=== PATIENT | female | born 1960 | race Caucasian/White ===

== ENCOUNTER 2020-08-29 08:53 | Outpatient (REF) | payer OTHER, SELFPAY ==
--- NOTE | 2020-08-29 | MM_ITS ---
EXAMINATION: MM SCREENING DIGITAL BREAST TOMOSYNTHESIS, BILATERAL CLINICAL INFORMATION: Screening. Asymptomatic. Family history breast cancer mother, age 75. 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 Personal history right excisional biopsy 09/25/2019 for focal ADH. The lifetime risk of breast cancer based on the Tyrer-Cuzick Model is 9%. COMPARISON: Mammography: 09/25/2019, 08/25/2019, 08/21/2019, 08/17/2019, 08/15/2018, 02/06/2018. Bilateral MRI. 10/30/2018. TECHNIQUE: Digital breast tomosynthesis is performed in both the craniocaudal and mediolateral oblique views along with computer-aided detection (CAD). Synthesized 2D images are generated from the tomosynthesis. Additional exaggerated right CC view is provided. FINDINGS: There are scattered areas of fibroglandular density (ACR BI-RADS breast composition Category b). The left breast has some minor scarring consistent with the lumpectomy. There is no interval mass or architectural abnormality or abnormal calcifications. The axilla is unremarkable. The right breast has focal asymmetric density upper outer quadrant 8 cm from nipple. This represents change from prior studies. Patient will be recalled for additional imaging. The remainder of the right breast is unremarkable. There are scattered punctate benign bilateral breast calcifications. IMPRESSION: 1. Right: Focal asymmetric density upper outer quadrant, change from prior exams. 2. Left: No mammographic evidence of malignancy. ASSESSMENT: BI-RADS 0: Incomplete - Need Additional Imaging Evaluation RECOMMENDATION: 1. Additional views of the right breast (spot outer CC, spot ML). 2. Targeted ultrasound right breast. 3. Radiology department staff will contact the patient for additional imaging. This patient's information was entered into a reminder system with a target due date for their next mammogram.
== END 2020-08-29 08:54 | disposition home or self-care (01) ==
LOC: HO.MAMMO 08:53
PROVIDERS: PCP Internal Medicine; Visit Provider Surgery
DX: Z12.31 Encounter for screening mammogram for malignant neoplasm of breast (principal)
CPT/HCPCS: 77063; 77067

== ENCOUNTER 2020-09-05 09:06 | Outpatient (REF) | payer OTHER, SELFPAY ==
--- NOTE | 2020-09-05 09:10 | MM_ITS ---
EXAMINATION: MM DIAGNOSTIC DIGITAL BREAST TOMOSYNTHESIS, RIGHT US RIGHT BREAST ULTRASOUND CLINICAL INFORMATION: New right breast density upper outer aspect. COMPARISON: Mammography: 08/29/2020 and studies dating back to 03/26/2016 and 01/05/2013. TECHNIQUE: Digital breast tomosynthesis is performed. 2D images are generated from the tomosynthesis. The following views are obtained: Spot compression views right breast in craniocaudal, mediolateral oblique, and 90-degree mediolateral views. Targeted right breast ultrasound. FINDINGS: There are scattered areas of fibroglandular density (ACR BI-RADS breast composition Category b). There is persistence of an irregularly marginated 1.7 x 1.3 cm density, approximately 6 cm from the nipple. Targeted right breast ultrasound demonstrated an approximately 1.3 x 1.0 cm irregularly marginated hypoechoic lesion with some mild distal sound shadowing lesion is wider than it is tall. No internal vascularity was detected. Results are discussed with the patient at time of visit. MM/MM tomosynthesis added views R IMPRESSION: Suspicious right breast mass upper outer aspect for which ultrasound-guided biopsy is recommended. The above recommendation was called to the referring provider's office by the patient navigator. ASSESSMENT: BI-RADS 4: Suspicious. RECOMMENDATION: Right breast ultrasound-guided core biopsy. This patient's information was entered into a reminder system with a target due date for their next mammogram.
== END 2020-09-05 09:07 | disposition home or self-care (01) ==
LOC: HO.MAMMO 09:06
PROVIDERS: Visit Provider Surgery
DX: R92.2 Inconclusive mammogram (principal)
CPT/HCPCS: 76642; 77065

== ENCOUNTER 2020-09-08 09:38 | Outpatient (REF) | payer OTHER, SELFPAY ==
--- NOTE | 2020-09-08 | MM_ITS ---
EXAMINATION: PROCEDURE: US GUIDED BREAST BIOPSY, RIGHT CLINICAL INFORMATION: Focal mass 10:00 position right breast adjacent to the muscle wall. COMPARISON: September 05, 2020 and August 29, 2020 PROCEDURAL DETAILS: The details of the procedure, as well as the risks, benefits, and alternatives to the procedure were explained to the patient in detail and all of her questions were answered, after which written informed consent was obtained. Site and side were confirmed. Prior to the procedure, sonography revealed an approximately 1.5 x 1.0 cm irregularly marginated hypoechoic lesion with some mild distal sound shadowing o'clock position 7 cm from the nipple. A time-out was performed, the lesion intended for biopsy was targeted, and the skin of the right breast was then prepped and draped in the usual sterile fashion. Using sonographic guidance, sterile technique, and 1% lidocaine without epinephrine for local anesthesia, multiple automated core biopsies were obtained through the targeted area with a 14G spring loaded Achieve core biopsy device. There was real-time confirmation of appropriate needle passage. Sampling was documented. At the completion of tissue sampling, a single butterfly-shaped metallic clip was deposited at the biopsy site. There was no evidence of immediate complication. SPECIMEN: An appropriate sample was obtained. DIGITAL POST-PROCEDURE MAMMOGRAPHY: Breast density: The tissue is heterogeneously dense. Obscure small masses. BI-RADS version 5 category C. There are no new mammographic findings demonstrated. The postprocedure 2-view direct digital mammogram reveals satisfactory positioning of the biopsy clip. The patient tolerated the procedure well and, after assuring adequate hemostasis, was discharged in good condition after reviewing postbiopsy breast care instructions. Final pathology results are pending. MM/MM diagnostic mammo unilat RT IMPRESSION: 1. No immediate complication from ultrasound-guided percutaneous biopsy right breast. 2. Ultrasound was used to localize and guide marker clip placement. 3. The 2-view direct digital postprocedure mammogram reveals satisfactory positioning of the biopsy clip. 4. Final pathology results are pending. A separate report with final recommendations will be issued once these results are made available.
== END 2020-09-08 09:39 | disposition home or self-care (01) ==
LOC: HO.MAMMO 09:38
PROVIDERS: Visit Provider Surgery
DX: C50.411 Malignant neoplasm of upper-outer quadrant of right female breast (principal)
CPT/HCPCS: 19083; 77065; 88305; 88342; 88360

== ENCOUNTER → 2020-09-13 14:18 | Outpatient (BNVA) | payer OTHER, SELFPAY | PROVIDERS: PCP Internal Medicine Geriatric Medicine; Referring Provider Internal Medicine Geriatric Medicine; Visit Provider Surgery | DX: C50.911 Malignant neoplasm of unspecified site of right female breast (principal); I10 Essential (primary) hypertension; K21.9 Gastro-esophageal reflux disease without esophagitis; Z88.6 Allergy status to analgesic agent; Z88.5 Allergy status to narcotic agent | CPT/HCPCS: 99212 ==

== ENCOUNTER 2023-08-27 09:10 | Outpatient (REF) | payer OTHER, SELFPAY ==
[2023-08-27 09:43] LABS: MANUAL DIFF FLAG NO
[2023-08-27 09:57] LABS: Basophils Percent Auto 0.3 % (0-2); Eosinophils Absolute Auto 0.1 X10*3/uL (0.0-0.4); Eosinophils Percent Auto 0.9 % (0-4); Hematocrit 36.9 % (37.0-47.0); Hemoglobin 12.2 g/dl (12.0-16.0); Imm Gran Abs Auto 0.03 X10*3/uL (0.00-0.03); Imm Gran Pct Auto 0.3 % (0.0-0.4); Lymphocytes Absolute Auto 1.1 X10*3/uL (1.2-4.9); Lymphocytes Percent Auto 12.3 % (20-40); Mean Corpuscular HGB Conc 33.1 g/dl (31.0-35.0); Mean Corpuscular Hemoglobin 28.3 pg (27.0-33.0); Mean Corpuscular Volume 85.6 fL (80.0-98.0); Mean Platelet Volume 9.8 fL (9.4-12.3); Monocytes Absolute Auto 0.5 X10*3/uL (0.1-1.2); Monocytes Percent Auto 5.1 % (2-11); Neutrophils Absolute Auto 7.2 x10*3/uL (2.0-8.3); Neutrophils Percent Auto 81.1 % (45-73); Platelet Count 340 X10*3/uL (160-400); Red Blood Count 4.31 X10*6/uL (4.20-5.50); Red Cell Distribution Width 11.9 % (11.0-16.0); White Blood Count 8.8 X10*3/uL (4.8-10.8)
[2023-08-27 10:53] LABS: Alanine Aminotransferase 27 U/L (0-31); Albumin Level 4.5 g/dL (3.5-5.0); Alkaline Phosphatase 123 U/L (39-117); Anion Gap 16 (12-20); Aspartate Amino Transferase 29 U/L (5-31); Bilirubin Total 0.4 mg/dL (0.0-1.0); Blood Urea Nitrogen 12 mg/dL (9-16); Calcium 10.1 mg/dL (8.4-10.2); Carbon Dioxide 24 mmol/L (22-29); Chloride 103 mmol/L (96-108); Cholesterol 230 mg/dL (<200); Estimated Glomerular Filt Rate > 60; Glucose Random 106 mg/dL (60-115); HDL Cholesterol 44 mg/dL (>40); LDL Cholesterol Calculated 144 mg/dL (<100); Potassium 3.9 mmol/L (3.3-5.1); Sodium 139 mmol/L (135-145); Total Protein 7.7 g/dL (6.5-8.0); Triglycerides 212 mg/dL (<150)
[2023-08-27 11:00] LABS: Vitamin B12 515 pg/mL (200-900)
[2023-08-27 11:03] LABS: TSH reflex Free T4 3.14 uIU/mL (0.32-4.0)
== END 2023-08-27 09:11 | disposition home or self-care (01) ==
LOC: HO.LAB 09:10
PROVIDERS: PCP Internal Medicine Geriatric Medicine; Visit Provider Internal Medicine Geriatric Medicine
DX: R41.3 Other amnesia (principal); E78.00 Pure hypercholesterolemia, unspecified
CPT/HCPCS: 36415; 80053; 80061; 82607; 84443; 85025

== ENCOUNTER 2023-10-11 14:16 | Outpatient (REF) | payer OTHER, SELFPAY | END 2023-10-11 14:17 | disposition home or self-care (01) | LOC: HO.HHCLNP 14:16 | PROVIDERS: Visit Provider Nurse Practitioner Primary Care | DX: R31.0 Gross hematuria (principal) | CPT/HCPCS: 87086 ==

== ENCOUNTER 2023-11-21 11:21 | Outpatient (REF) | payer OTHER, SELFPAY ==
[2023-11-21 13:07] LABS: Appearance Urine Turbid; Color Urine Yellow; Glucose Urine UA Negative (Negative); Leukocyte Esterase Urine Small (1+) (Negative); Nitrite Urine Negative (Negative); PH 5.5 (5.0-9.0); Specific Gravity - Urine 1.025 (1.005-1.025); UMIC TRIGGER UACC YES; Urine Blood Negative (Negative); Urine Ketones Trace mg/dL (Negative); Urine Protein Negative (Neg-Trace)
[2023-11-21 13:15] LABS: Bacteria Urine None Seen (None Seen); Hyaline Casts Urine 0-2 /LPF (0-2); Squamous Epithelial Cell Urine 0-2 /HPF (0-2); UACC Culture Trigger YES
[2023-11-21 14:16] LABS: RBC Urine 0-2 /HPF (0-2)
== END 2023-11-21 11:22 | disposition home or self-care (01) ==
LOC: HO.HHCL 11:21
PROVIDERS: Visit Provider Internal Medicine Geriatric Medicine
DX: R31.0 Gross hematuria (principal)
CPT/HCPCS: 81001; 87086

== ENCOUNTER 2024-03-11 09:07 | Outpatient (REF) | payer OTHER, SELFPAY ==
[2024-03-11 12:06] LABS: Creatinine Urine 145.84 mg/dL; Microalbum/Creatinine Ratio Ur 33.5 ug/mg cr (<30)
[2024-03-11 12:09] LABS: Anion Gap 14 (12-20); Blood Urea Nitrogen 12 mg/dL (9-16); Calcium 9.4 mg/dL (8.4-10.2); Carbon Dioxide 24 mmol/L (22-29); Chloride 105 mmol/L (96-108); Estimated Glomerular Filt Rate > 60; Glucose Random 113 mg/dL (60-115); Sodium 139 mmol/L (135-145)
== END 2024-03-11 09:08 | disposition home or self-care (01) ==
LOC: HO.HHCL 09:07
PROVIDERS: Visit Provider Internal Medicine Geriatric Medicine
DX: E11.9 Type 2 diabetes mellitus without complications (principal); I10 Essential (primary) hypertension
CPT/HCPCS: 36415; 80048; 82043; 82570

== ENCOUNTER 2024-12-24 14:27 | Outpatient (REF) | payer OTHER, SELFPAY ==
--- OUTSIDE RECORDS SUMMARY | 2024-12-24 14:31 | XMS_ITS | Encounter Summary ---
Author Organization [employer] Address [address] [place] [address] Care Team Providers Care Sheet Metal Assembler And Riveter Name Role Phone Name, Abimael ARANDA Primary Care Provider [phone] Reason for Visit * Reason Comments Med Refill Encounter Details Date Type Department Care Team (Late st Contact Info) Description 11/29/2024 Refill [facility] MED & PEDS [address] [place], [place] [phone] Name, MD Abimael [address] [place] [address] Social History Tobacco Use Types Packs/Day Years Used Date Smoking Tobacco: Never Passive Smoke Exposure: Never Smokeless Tobacco: Never Alcohol Use Standard Drinks/Week Comments Never 0 (1 standard drink = 0.6 oz pur e alcohol) Depression Answer Date Recorded Patient Health Questionnaire-9 Score 0 03/05/2024 Patient Health Questionnaire-9 Score 0 03/05/2024 Last PHQ-9: Questionnaire Data Not on file 0 03/05/2024 Housing Stability Answer Date Recorded What is your housing situation today? I have fabián arteaga 03/05/[address] you li ve. Do you have problems with any of the following? None of the above 03/05/2024 Food Insecurity Answer Date Recorded Within the past 12 months, y ou worried that your food would run out before you got money to buy more: Never True 03/05/2024 Within the past 12 months,th e food you bought just didn't last and you didn't have enough money to get more: Never True Transportation Answer Date Recorded In the past 12 months, has l ack of transportation kept you from medical appts, meetings, work or from getting things needed for daily living? No 03/05/2024 Utilities Answer Date Recorded In the past 12 months, has t he electric, gas, oil or water company threatened to shut off services in your home? No 03/05/2024 Depression Answer Date Recorded Patient Health Questionnaire-2 Score 0 03/05/2024 Comments No Sex and Gender Information Value Date Recorded Sex Assigned at Female 09/10/2022 10:14 AM EDT Legal Sex Female 10:14 AM EDT Gender Identity Female 09/10/2022 10:14 AM EDT Sexual Orientation Straight 09/10/2022 10 :14 AM EDT documented as of this encounter Plan of Treatment Upcoming Encounters Date Type Department Care Team (Late st Contact Info) Description 01/01/2025 11:30 AM EST Clinical Support [facility] MEDICINE [address] [place] [address] documented as of this encounter Visit Diagnoses Not on filedocumented in this encounter Additional Health Concerns Assessment Noted Time PHQ-9 Depression Total Score: 0 03/05/20 24 9:36 AM EDT documented as of this encounter Care Teams Sheet Metal Assembler And Riveter Relationship Specialty Start Date End Date Name, MD Abimael [address] [place] [address] PCP - General Family Medicine 09/24/19 documented as of this encounter
--- OUTSIDE RECORDS SUMMARY | 2024-12-24 14:31 | XMS_ITS | Encounter Summary ---
Author Organization [employer] Address [address] [place] [address] Care Team Providers Care Mattress Filling Machine Tender Name Role Phone Name, Abimael ARANDA Primary Care Provider [phone] Encounter Details Date Type Department Care Team (Latest Contact Info) Description 12/24/2024 Travel Social History Tobacco Use Types Packs/Day Years [...] Description 01/01/2025 11:30 AM EST Clinical Support [facility] MED[facility]INE [address] [place] [address] documented as of this encounter Visit Diagnoses Not on filedocumented in this encounter Additional Health Concerns Assessment Noted Time PHQ-9 Depression Total Score: 0 03/05/20 24 9:36 AM EDT documented as of this encounter Care Teams Mattress Filling Machine Tender Relationship Specialty Start Date End Date Name, MD Abimael [address] [place] [address] PCP - General Family Medicine 09/24/19 documented as of this encounter
--- OUTSIDE RECORDS SUMMARY | 2024-12-24 14:31 | XMS_ITS | Encounter Summary ---
Author Organization [employer] [facility] Address [address] [place] [address] Care Team Providers Care Crutch Maker Name Role Phone Name, Abimael ARANDA Primary Care Provider [phone] Reason for Visit * Reason Comments Med Refill Encounter Details Date Type Department Care Team (Late st Contact Info) Description 09/30/2023 Refill [facility] MEDICINE [address] [place], [place] [phone] Name, MD Abimael [address] [place], [place] [phone] Dyslipidemia Social History Tobacco Use Types Packs/Day Years Used Date Smoking Tobacco: Never Smokeless Tobacco: Never Alcohol Use Standard Drinks/Week Comments Never 0 (1 standard drink = 0.6 oz pur e alcohol) PHQ-2 Answer Date Recorded Patient Health Questionnaire-2 Score 0 12/06/2022 Housing Stability Answer Date Recorded What is your housing situation today? I have fabián arteaga 08/26/[address] you li ve. Do you have problems with any of the following? None of the above 08/26/2023 Food Insecurity Answer Date Recorded Within the past 12 months, y ou worried that your food would run out before you got money to buy more: Never True 08/26/2023 Within the past 12 months,th e food you bought just didn't last and you didn't have enough money to get more: Never True Transportation Answer Date Recorded In the past 12 months, has l ack of transportation kept you from medical appts, meetings, work or from getting things needed for daily living? No 08/26/2023 Utilities Answer Date Recorded In the past 12 months, has t he electric, gas, oil or water company threatened to shut off services in your home? No 08/26/2023 Depression Answer Date Recorded Patient Health Questionnaire-2 Score 0 12/06/2022 Comments No Sex and Gender Information Value Date Recorded Sex Assigned at Female 09/10/2022 10:14 AM EDT Legal Sex Female 10:14 AM EDT Gender Identity Female 09/10/2022 10:14 AM EDT Sexual Orientation Straight 09/10/2022 10 :14 AM EDT documented as of this encounter Miscellaneous Notes * Telephone Encounter - Lakshmi Styles RN - 09/30/2023 12:25 PM EST T/C placed to pt via [employer] Shannon #[id number] to advise of message from pcp Please call the patient, on the recent blood work cholesterol is high, I recommended starting a statin for theprevention of heart attacks and strokes. I would recommend pravastatin since she had problems with atorvastatin in the past If patient agrees I will send med to pharmacy on file. Encourage patient to call if she has any problems with the med. Rest of the blood work was normal and the Cologard is also normal No answer, v/m left to return call. documented in this encounter Plan of Treatment Upcoming Encounters Date Type Department Care Team (Late st Contact Info) Description 01/01/2025 11:30 AM EST Clinical Support [facility] MEDIC[facility] [address] [place] [address] documented as of this encounter Visit Diagnoses Diagnosis Dyslipidemia Other and unspecified hyperlipidemia documented in this encounter Care Teams Crutch Maker Relationship Specialty Start Date End Date Name, MD Abimael [address] [place] [address] PCP - General Family Medicine 09/24/19 documented as of this encounter
--- OUTSIDE RECORDS SUMMARY | 2024-12-24 14:31 | XMS_ITS | Encounter Summary ---
Author Organization [employer] [facility] Address [address] [place] [address] Care Team Providers Care Admin Asst Name Role Phone Name, Abimael ARANDA Primary Care Provider [phone] Reason for Visit * Reason Onset Date Comments Dental Paperwork 03/01/2023 Encounter Details Date Type Department Care Team (Late st Contact Info) Description 03/01/2023 Telephone [facility] MEDICINE [address] [place], [place] [phone] Name, MD Abimael [address] [place], [place] [phone] Dental Paperwork Social History Tobacco Use Types Packs/Day Years Used Date Smoking Tobacco: Never Smokeless Tobacco: Never PHQ-2 Answer Date Recorded Patient Health Questionnaire-2 Score 0 12/06/2022 Depression Answer Date Recorded Patient Health Questionnaire-2 Score 0 12/06/2022 Comments Unknown Sex and Gender Information Value Date Recorded Sex Assigned at Female 09/10/2022 10:14 AM EDT Legal Sex Female 10:14 AM EDT Gender Identity Female 09/10/2022 10:14 AM EDT Sexual Orientation Straight 09/10/2022 10 :14 AM EDT documented as of this encounter Miscellaneous Notes * Telephone Encounter - Jarek Peña - 03/01/2023 11:45 AM EDT Tc from pt requesting for form left in medical records regarding for dental to be sign as soon as possible in regards to her diagnosis. Medical Records Informed that it may take 7-15 days and pt is aware of this but pt is wondering provider could sign as soon as possible. Please contact pt at [phone] Latvian Speaker documented in this encounter Plan of Treatment Upcoming Encounters Date Type Department Care Team (Late st Contact Info) Description 01/01/2025 11:30 AM EST Clinical Support [facility] MEDICINE [address] [place] [address] documented as of this encounter Visit Diagnoses Not on filedocumented in this encounter Care Teams Admin Asst Relationship Specialty Start Date End Date Name, MD Abimael [address] [place] [address] PCP - General Family Medicine 09/24/19 documented as of this encounter
--- OUTSIDE RECORDS SUMMARY | 2024-12-24 14:31 | XMS_ITS | Encounter Summary ---
Author Organization [employer] Address [address] [place] [address] Care Team Providers Care Lehr Stripper Name Role Phone Name, Abimael ARANDA Primary Care Provider [phone] Reason for Visit * Reason Onset Date Comments chartprep 12/22/2024 Encounter Details Date Type Department Care Team ([facility] st Contact Info) Description 12/22/2024 Telephone [facility] [address] [place], [place] [phone] Marimar Gatica MA chartprep Social History Tobacco Use Types Packs/Day Years [...] encounter Miscellaneous Notes * Telephone Encounter - Marimar Gatica MA - 12/22/2024 11:02 AM EST Chart Prep Labs: done Images: done Vaccines due: yes Covid,flu,RSV and zoster Referrals: N/A Screenings: N/A Overdue care gaps: Sbirt, Oral Health, HEIDE-7 documented in this encounter Plan of Treatment Upcoming Encounters Date Type Department Care Team (Late st Contact Info) Description 01/01/2025 11:30 AM EST Clinical Support [facility] [address] [place] [address] documented as of this encounter Visit Diagnoses Not on filedocumented in this encounter Additional Health Concerns Assessment Noted Time PHQ-9 Depression Total Score: 0 03/05/20 24 9:36 AM EDT documented as of this encounter Care Teams Lehr Stripper Relationship Specialty Start Date End Date Name, MD Abimael [address] [place] [address] PCP - General Family Medicine 09/24/19 documented as of this encounter
--- OUTSIDE RECORDS SUMMARY | 2024-12-24 14:31 | XMS_ITS | Encounter Summary ---
Author Organization [employer] [facility] Address [address] [place] [address] [address] [place] [address] Care Team Providers Care Nuclear Fuels Reclamation Engineer Name Role Phone Name, Abimael ARANDA Primary Care Provider [phone] Encounter Details Date Type Department Care Team (Late st Contact Info) Description 02/11/2023 Orders Only [facility] MED & PEDS [address] [place] [address] Heather Obregon LPN Social History Tobacco Use Types Packs/Day Years [...] Description 01/01/2025 11:30 AM EST Clinical Support [facility] MEDICINE [address] [place] [address] documented as of this encounter Visit Diagnoses Not on filedocumented in this encounter Care Teams Nuclear Fuels Reclamation Engineer Relationship Specialty Start Date End Date Name, MD Abimael [address] [place] [address] PCP - General Family Medicine 09/24/19 documented as of this encounter
--- OUTSIDE RECORDS SUMMARY | 2024-12-24 14:31 | XMS_ITS | Encounter Summary ---
Author Organization [employer] [facility] Address [address] [place] [address] Care Team Providers Care Ditto Machine Operator Name Role Phone Name, Abimael ARANDA Primary Care Provider [phone] Encounter Details Date Type Department Care Team (Late Contact Info) Description 12/03/2022 Orders Only [facility] CH[facility] MED & PEDS [address] [place], [place] [phone] Heather Obregon LPN Social History Tobacco Use Types Packs/Day Years Used Date Smoking Tobacco: Never Assessed PHQ-2 Answer Date Recorded Patient Health Questionnaire-2 Score 0 12/06/2022 Depression Answer Date Recorded Patient Health Questionnaire-2 Score 0 12/06/2022 Comments Unknown Sex and Gender Information Value Date Recorded Sex Assigned at Female 09/10/2022 10:14 AM EDT Legal Sex Female 10:14 AM EDT Gender Identity Female 09/10/2022 10:14 AM EDT Sexual Orientation Straight 09/10/2022 10 :14 AM EDT COVID-19 Exposure Response Date Recorded In the last 10 days, have yo u been in contact with someone who was confirmed or suspected to have Coronavirus/COVID-19? No / Unsure 12/06/2022 9:23 AM EST documented as of this encounter Plan of Treatment Upcoming Encounters Date Type Department Care Team (Late st Contact Info) Description 01/01/2025 11:30 AM EST Clinical Support [facility] [address] [place], [place] [phone] documented as of this encounter Visit Diagnoses Not on filedocumented in this encounter Care Teams Ditto Machine Operator Relationship Specialty Start Date End Date Name, MD Abimael [address] [place] [address] PCP - General Family Medicine 09/24/19 documented as of this encounter
--- OUTSIDE RECORDS SUMMARY | 2024-12-24 14:31 | XMS_ITS | Clinical Summary ---
Author Organization [employer] Address [address] [facility] [address] [place] [address] Care Team Providers Care Doctor Of Chiropractic Name Role Phone Name, Abimael ARANDA Primary Care Provider [phone] Allergies Active Allergy Reactions Criticality Noted Date Comments Acetaminophen 08/01/2018 Amitriptyline 02/10/2015 Other reaction(s): nausea, blurry vision Aspirin Nausea And Vomiting,Rash Low 09/19/2020 At face Morphine Rash Low 03/06/2021 Naproxen Other reaction(s): EDEMA Oxycodone 08/01/2018 Oxycodone-Acetaminophen 12/06/2022 Penicillin G 08/01/2018 Medications ketotifen (Zaditor) 0.025 % ophthalmic solutionIndicatio ns:Conjunctivitis , unspecified conjunctivitis type, unspecified laterality INSTILL 1 DROP IN AFFECTED EYE(S) TWICE DAILY 10 mL 1 023 Active letrozole (Femara) 2.5 MG chemo tablet Take 1 tablet by mouth in the morning. 021 Active Ergocalciferol 50 MCG (1999 UT) tablet Take 1 tablet by mouth once a day 90 tablet 1 023 Active clonazePAM (KlonoPIN) 0.5 MG tablet TAKE 1 TABLET BY MOUTH ONCE DAILY NEEDED 023 Active DULoxetine (Cymbalta) [address] capsule Take 20 mg by mouth in the morning. Active pantoprazole (ProtoNix) 20 MG EC tabletIndications :Heartburn TAKE 1 TABLET BY MOUTH EVERY DAY 90 tablet 3 024 Active losartan (Cozaar) 50 MG tabletIndications :Essential hypertension TAKE 1 TABLET BY MOUTH EVERY MORNING 90 tablet 3 024 Active Blood Pressure kitIndications:Es sential hypertension For daily home use 1 kit 024 Active cholecalciferol VITAMIN D (Vitamin D-3) 50 MCG (2000 UT) tablet TAKE 1 TABLET BY MOUTH ONCE DAILY 90 tablet 1 024 Active loratadine (Claritin) 10 MG tablet TAKE 1 TABLET BY MOUTH EVERY DAY IN THE MORNING 90 tablet 1 024 Active Ventolin HFA 108 (90 Base) MCG/ACT inhaler INHALE 2 PUFFS BY MOUTH EVERY 6 HOURS NEEDED FOR WHEEZING OR SHORTNESS OF BREATH 18 g 2 024 Active DULoxetine (Cymbalta) [address] capsuleIndication s:Depressive disorder TAKE 1 CAPSULE BY MOUTH EVERY MORNING 30 capsule 3 024 Active pravastatin (Pravachol) 20 MG tablet TAKE 1 TABLET BY MOUTH EVERY MORNING 30 tablet 11 025 Active fluticasone (Flonase) 50 MCG/ACT nasal spray Administer 2 sprays into each nostril Once per day. 16 g 3 025 Active glucose blood (FREESTYLE LITE) test strip TEST BLOOD SUGAR EVERY DAY 50 strip 6 025 Active Blood Glucose Monitoring Suppl (FreeStyle Harlan Lite) w/Device kit Use to test blood sugar 1 times daily 1 kit 025 Active Lancets misc Use to test blood sugar 1 times daily 100 each 025 Active Alcohol Swabs 70 % padsIndications:T ype 2 diabetes mellitus without complication, without long-term current use of insulin ([facility]) Use to test blood sugar 1 times daily 100 each 025 Active Acetaminophen Extra Strength 500 MG tablet Take 1 tablet (500 mg) by mouth every 8 (eight) hours if needed (pain). 60 tablet 2 025 Active fluticasone (Flonase) 50 MCG/ACT nasal spray Administer 1 spray into affected nostril(s) if needed each day. 022 2024 Discontinued(R eorder (will not trigger notification to Pharmacy)) FREESTYLE LITE test strip TEST BLOOD SUGAR EVERY DAY 50 strip 6 023 2024 Discontinued(R eorder (will not trigger notification to Pharmacy)) pravastatin (Pravachol) 20 MG tablet Take 1 tablet (20 mg) by mouth in the morning. 30 tablet 11 024 2024 Discontinued TRUEplus Lancets 33G miscIndications:D yslipidemia TEST BLOOD SUGAR ONCE DAILY 100 each 11 024 2024 Discontinued(D uplicate order (will not trigger notification to Pharmacy)) Acetaminophen Extra Strength 500 MG tablet TAKE 1 TABLET EVERY 8 HOURS NEEDED FOR PAIN 60 tablet 2 024 2024 Discontinued Acetaminophen Extra Strength 500 MG tablet TAKE 1 TABLET BY MOUTH EVERY 8 HOURS NEEDED FOR PAIN 60 tablet 2 025 2024 Discontinued(R eorder (will not trigger notification to Pharmacy)) Nirmatrelvir&Anthony navir 300/100 (Paxlovid, 300/100,) 20 x 150 MG & 10 x 100MG tablet therapy pack Take 1 Dose by mouth 2 times daily for 5 days. 30 each 025 2024 Discontinued(T herapy completed) benzonatate (Tessalon Perles) 100 MG capsule Take 1 capsule (100 mg) by mouth if needed in the morning, at noon, and at bedtime for cough for up to 10 days. Do not crush or chew. 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 Depressive disorder 11/11/1959 Anxiety disorder 11/11/1959 Resolved Problems Problem Noted Date Diagnosed Date Resolved Date Atypical ductal hyperplasia of breast 12/06/2022 12/24/2024 Syncope 12/06/2022 12/24/2024 Statin intolerance 12/06/2022 Hypokalemia 12/22/2020 12/06/2022 Hip pain 10/08/2018 12/06/2022 Bursitis of shoulder 05/21/2018 025 Elevated blood pressure reading 08/29/2017 12/06/2022 Encounters Date Type Department Care Team Description 12/24/2024 11:30 AM EST Office Visit [facility] [address] [place] [phone] NameAbimael MD Type 2 diabetes mellitus without complication, without long-term current use of insulin ([facility]) (Primary Dx); Essential hypertension; Fibromyositis 12/24/2024 Travel 12/22/2024 Telephone [facility] [address] [place] [phone] Marimar Gatica MA chartprep 12/17/2024 3:20 PM EST Office Visit [facility] [address] [place] [phone] Heather Hodge DO COVID (Primary Dx); Cough, unspecified type 12/09/2024 Refill [facility] [address] [place] [phone] Abimael Mario MD 11/29/2024 Refill [facility] [address] [place], [place] [phone] Abimael Mario MD 10/26/2024 Telephone [facility] [address] [place] [address] [phone] Cuate Stoner MA feb recall 10/03/2024 Refill [facility] [address] [place] [phone] Abimael Mario MD Depressive disorder 09/28/2024 Refill [facility] [address] [place] [phone] Abimael Mario MD from Last 3 Months Immunizations Name Administration Dates Next Due Influenza injectable quadriv alent preservative free 08/23/2023,08/10/2022,08/07/2021 MMR 10/09/1999 Pfizer Covid-19 Vaccine 12+ 04/25/2022 Pfizer Covid-19 Vaccine 12+ meri-sucrose (Espinal Cap) 04/25/2022 Pneumococcal Conjugate PCV 20 03/05/2024 Pneumococcal Polysaccharide PPSV23 01/21/2020 TD (adult), 2 Lf tetanus tox oid, preservative free, adsorbed 08/04/2009 Tdap 02/10/2015 Family History Medical History Relation Name Comments Diabetes Brother Cervical cancer Mother Coronary artery disease Mother Diabetes Mother Glaucoma Mother Relation Name Status Comments Brother Mother Social History Tobacco Use Types Packs/Day Years Used Date Smoking Tobacco: Never Passive Smoke Exposure: Never Smokeless Tobacco: Never Tobacco Cessation:Counseling Given: Not Answered Alcohol Use Standard Drinks/Week Comments Never 0 [...] Orientation Straight 09/10/2022 10 :14 AM EDT Last Filed Vital Signs Vital Sign Reading Time Taken Comments Blood Pressure 146/77 12/24/2024 11:30 AM EST Pulse 88 12/24/2024 11:30 AM EST Temperature 37.2 ??C (98.9 ??F) 12/24/2024 11:[address] Respiratory Rate 20 12/24/2024 11:30 AM EST Oxygen Saturation 98% 12/24/2024 11:30 AM EST Inhaled Oxygen Concentration - - Weight 75 kg (165 lb 6.4 oz) 12/24/2024 11:30 AM EST Height 152.4 cm (5') 12/24/2024 11:30 AM EST Body Mass Index 32.3 12/24/2024 11:30 AM EST Plan of Treatment Upcoming Encounters Date Type Department Care Team (Late st Contact Info) Description 01/01/2025 11:30 AM EST Clinical Support [facility] [address] [place], [place] [phone] Health Maintenance Due Date Last Done Comments CT Colonography 1962 Colonoscopy 1962 FIT 1962 FOBT 1962 HIV Screening 1962 Sigmoidoscopy 1962 Zoster Vaccines (1 of 2) 2012 RSV Patients and Patients Aged 60 years or older (1 - Risk 60-74 years 1-dose series) 2022 COVID-19 Vaccine ( season) 2024 04/25/2022, 04/25/2022, 12/07/2021, Additional history exists Influenza Vaccine (#1) 2024 , 08/10/2022, 08/07/2021 Lipid Panel 08/27/2024 08/27/2023, 04/26/2022 DTaP/Tdap/Td Vaccines (2 - Td or Tdap) 02/10/2025 02/10/2015, 08/04/2009 Diabetes: Hemoglobin A1C 02/10/2025 024, 03/05/2024, 08/23/2023, Additional history exists Depression Screening 03/05/2025 03/05/2024, 03/05/20 Diabetes: Foot Exam 03/05/2025 03/05/2024, 03/05/2024, 03/05/2024, Additional history exists SDOH Screening 03/05/2025 03/05/2024 Diabetes: Urine Protein Screening 03/11/2025 03/11/2024, 04/26/2022 Pap Smear 05/28/2025 05/28/2022 Alcohol/Substance Use Screening 12/24/2025 12/24/2024 Tobacco Screening 12/24/2025 12/24/2024 Eye Exam 09/11/2026 09/11/2024, 11/0 11/2023, 09/11/2024, Additional history exists Colorectal Cancer Screening 09/15/2026 FIT DNA/Cologuard 09/15/2026 09/15/2023 Cervical Cancer Screening 05/28/2027 HPV/Cotest 05/28/2027 05/28/2022 Hepatitis C Screening Completed 02/11/2015 Pneumococcal Vaccine: 50+ Years Completed 03/05/2024, 01/21/2020 HIB Vaccines Aged Out No longer eligi ble based on patient's age to complete this topic HPV Vaccines Aged Out No longer eligi ble based on patient's age to complete this topic Hepatitis A Vaccines Aged Out No long er eligible based on patient's age to complete this topic Hepatitis B Vaccines Aged Out No long er eligible based on patient's age to complete this topic IPV Vaccines Aged Out No longer eligi ble based on patient's age to complete this topic Meningococcal Vaccine Aged Out No bo jose eligible based on patient's age to complete this topic RSV under 20 months Aged Out No longe r eligible based on patient's age to complete this topic Rotavirus Vaccines Aged Out No longer eligible based on patient's age to complete this topic Procedures Procedure Name Priority Date/Time Associated Diagnosis Comments POCT GLUCOSE Routine 12/24/2024 11:44 AM EST Type 2 diabetes mellitus without complication, without long-term current use of insulin ([facility]) POCT INFLUENZA A (ID NOW RAPID MOLECULAR) Routine 12/17/2024 3:48 PM EST Cough, unspecified type POCT INFLUENZA B (ID NOW RAPID MOLECULAR) Routine 12/17/2024 3:47 PM EST Cough, unspecified type POC MEYERS ID NOW STREP A Routine 12/17/2024 3:40 PM EST Cough, unspecified type POCT RAPID COVID ANTIGEN Routine 12/17/2024 3:38 PM EST Cough, unspecified type POCT GLYCATED HEMOGLOBIN, TOTAL Routine 08/12/2024 11:27 AM EDT Type 2 diabetes mellitus without complication, without long-term current use of insulin (CMS/HCC) ALBUMIN, RANDOM URINE W/CREATININE Routine 03/11/2024 9:09 AM EDT Type 2 diabetes mellitus without complication, without long-term current use of insulin (CMS/HCC) LAB COLOGUARD?? COLON CANCER SCREEN Routine 09/15/2023 7:03 AM EST Screen for colon cancer LIPID PANEL, STANDARD Routine 08/27/2023 9:41 AM EDT High cholesterol THINPREP IMAGING PAP AND HPV MRNA E6/E7 WITH REFLEX TO HPV 16,18/45 Routine 05/28/2022 10:31 AM EDT HM HEPATITIS C ANTIBODY Routine 02/11/2015 from Last 3 Months or Most Recently Relevant to Health Maintenance Results * POCT Glucose (12/24/2024 11:44 AM EST) Pathologist [facility] Glucose Blood, POC 126 60 - 200 mg/dL QC Media Lot # [id number] Lot# Expiration Date 82,625 Blood Capillary blood specimen / Unknown 12/24/2024 11:44 AM EST us Abimael Mario MD POINT OF CARE TEST ENTER/EDIT OR DERABLES Final Result * POCT Rapid Influenza A MEYERS ID NOW (12/17/2024 3:48 PM EST) Pathologist [facility] Influenza A Negative Negative, Indeterminate [facility] QC Media Lot # [id number] [facility] Lot# Expiration Date [id number] [facility] Swab 12/17/2024 3:48 PM EST Heather Loerablakedank DO POINT OF CARE TEST ENTER/RAYRAY T ORDERABLES Final Result Performing Organization Address [facility]/ZIP Co de Phone Number [facility] [address] [place] [phone] * POCT Rapid Influenza B MEYERS ID NOW (12/17/2024 3:47 PM EST) Influenza B Negative Negative, Indeterminate [facility] QC Media Lot # [id number] [facility] Lot# Expiration Date [facility] Swab 12/17/2024 3:47 PM EST Heather Loerablakedank DO POINT OF CARE TEST ENTER/RAYRAY T ORDERABLES Final Result Performing Organization Address [facility] de Phone Number [facility] [address] [place] [address] [phone] * POCT Rapid Strep A MEYERS ID NOW (12/17/2024 3:40 PM EST) [facility] Rapid Strep A Screen Negative Negative, None Detected QC Media Lot # [id number] Lot# Expiration Date 026 Swab 12/17/2024 3:40 PM EST Heather Ayesha DO POINT OF CARE TEST ENTER/RAYRAY T ORDERABLES Final Result * (ABNORMAL) POCT Rapid Covid-19 BinaxNOW (12/17/2024 3:38 PM EST) Pathologist [facility] Rapid COVID Ag Positive QC Media Lot # [id number] Lot# Expiration Date Swab 12/17/2024 3:38 PM EST Heather Ayesha DO POINT OF CARE TEST ENTER/RAYRAY T ORDERABLES Edited Result - Final * (ABNORMAL) POCT HGB A1C (08/12/2024 11:27 AM EDT) Hemoglobin A1C 6.2(A) 4.0 - 6.0 % QC Media Lot # [id number] Lot# Expiration Date Blood 08/12/2024 11:2 7 AM EDT us Abimael Mario MD POINT OF CARE TEST ENTER/EDIT OR DERABLES Final Result * (ABNORMAL) Albumin, Random Urine W/Creatinine (03/11/2024 9:09 AM EDT) Creatinine, Urine 145.84 mg/dL [facility] Microalbumin Urine 49.0 mg/L H [facility] Microalbum Creatinine Ratio Ur 33.5(H) <30 ug/mg cr [facility] Comment:Albumin/Creatinine R atio Reference Ranges: Normal: < 30 ug/mg creatinine Microalbuminuria: 30 - 300 ug/mg creatinineClinical Albuminuria: > 300 ug/mg creatinine Urine (Urine, Random) 03/11/2024 9:09 AM EDT 03/11/2024 11:36 AM EDT us Abimael Mario MD LAB URINE ORDERABLES Final Resul t [facility] [address] [place] [address] [phone] * Cologuard?? colon cancer screening (09/15/2023 7:03 AM EST) Cologuard Result Negative Negative 09/24/20 23 5:11 PM EST [facility] (CLIA #:[id number]) Comment: NEGATIVE TEST RESULT. A negative Cologuard result indicates a low likelihood that a colorectal cancer (CRC) or advanced adenoma (adenomatous polyps with more advanced pre-malignant features) ??is present. The chance that a person with a negative Cologuard test has a colorectal cancer is less than 1 in 1500 (negative predictive value >99.9%) or has an ??advanced adenoma is less than ??5.3% (negative predictive value 94.7%). These data are based on a prospective cross-sectional study of 10,000 individuals at average risk for colorectal cancer who were screened with both Cologuard and colonoscopy. (Param Guan al, N Engl J Med 2014;370(14):1286- 1297) The normal value (reference range) for this assay is negative. COLOGUARD RE-SCREENING RECOMMENDATION: Periodic colorectal cancer screening is an important part of preventive healthcare for asymptomatic individuals at average risk for colorectal cancer. ??Following a negative Cologuard result, the [place] [employer] Society and U.S. Multi-Society Task Force screening guidelines recommend a Cologuard re-screening interval of 3 years. References: [place] [employer] Guideline for Colorectal Cancer Screening: https://www.cancer.org/cancer/jfvfm-ckmwst-vhmrot/mihfmjvnv-yyrftfxwp-mncpnyj/ac s-rec ommendations.html.; Yaya DK, Gemini DE LEON, Adelaide DevineK, Colorectal Cancer Screening: Recommendations for Physicians and Patients from the U.S. Multi-Society Task Force on Colorectal Cancer Screening , Am J Gastroenterology 2017; 112:2242-6539. TEST DESCRIPTION: Composite algorithmic analysis of stool DNA-biomarkers with hemoglobin immunoassay. ?? Quantitative values of individual biomarkers are not reportable and are not associated with individual biomarker result reference ranges. Cologuard is intended for colorectal cancer screening of adults of either sex, 45 years or older, who are at average-risk for colorectal cancer (CRC). Cologuard has been approved for use by the U.S. FDA. The performance of Cologuard was established in a cross sectional study of average-risk adults aged 50-84. Cologuard performance in patients ages 45 to 49 years was estimated by sub-group analysis of near-age groups. Colonoscopies performed for a positive result may find as the most clinically significant lesion: colorectal cancer [4.0%], advanced adenoma (including sessile serrated polyps greater than or equal to 1cm diameter) [20%] or non- advanced adenoma [31%]; or no colorectal neoplasia [45%]. These estimates are derived from a prospective cross-sectional screening study of 10,000 individuals at average risk for colorectal cancer who were screened with both Cologuard and colonoscopy. (Param Guan al, N Engl J Med 2014;370(14):8119-3053.) Cologuard may produce a false negative or false positive result (no colorectal cancer or precancerous polyp present at colonoscopy follow up). A negative Cologuard test result does not guarantee the absence of CRC or advanced adenoma (pre-cancer). The current Cologuard screening interval is every 3 years. ([place] [employer] and U.S. Multi-Society Task Force). Cologuard performance data in a 10,000 patient pivotal study using colonoscopy as the reference method can be accessed at the following location: www.Jump [employer] Fall.Track the Bet/results. Additional description of the Cologuard test process, warnings and precautions can be found at www.Imim[employer]rd.Track the Bet. Stool specimen (specimen) 09/15/2023 7:03 AM EST 09/17/2023 8:52 PM EST us Abimael Name LAB MOLECULAR DIAGNOSTICS ORDERA BLES Final Result [facility] [facility] (CLIA #:[id number]) [address] [place] [address], * (ABNORMAL) Lipid Panel, Standard (08/27/2023 9:41 AM EDT) Triglycerides 212(H) <150 mg/dL [facility] Comment:Desirable Triglyceri de: less than 150 mg/dLBorderline High Triglyceride 150-199 mg/dLHigh Triglyceride: 200-499 mg/dLVery High Triglyceride: greater than or equal to 5OO mg/dL Cholesterol 230(H) <200 mg/dL [facility] Comment:Desirable Cholestero l: less than 200 mg/dLBorderline High Cholesterol: 200-239 mg/dLHigh Cholesterol: greater than 239 mg/dL LDL Cholesterol Calculated 144(H) <100 mg/dL [facility] Comment:Desirable LDL: less than 100 mg/dLNear Optimal/Above Optimal LDL: 110- 129 mg/dLBorderline High LDL: 130-159 mg/dLHigh LDL: 160-189 mg/dLVery High LDL: greater than or equal to 190 mg/dL HDL Cholesterol 44 >40 mg/dL [facility] Comment:Desirable HDL: great er than 40 mg/dL Note: This HDL assay may give artificially low results in patients with liver disease. Blood Venous blood specimen / Unknown 08/27/2023 9:41 AM EDT 08/27/2023 9:41 AM EDT us Abimael Mario MD LAB BLOOD ORDERABLES Final Resul t [facility] [address] [place] [address] [phone] * THINPREP TIS PAP AND HPV mRNA E6/E7 WITH REFLEX TO HPV 16,18/45 (05/28/2022 10:31 AM EDT) COMMENT SEE COMMENT [facility] Comment: EXPLANATORY NOTE: ? The Pap is a screening test for cervical cancer. It is ?? not a diagnostic test and is subject to false negative ?? and false positive results. It is most reliable when a ?? satisfactory sample, regularly obtained, is submitted ?? with relevant clinical findings and history, and when ?? the Pap result is evaluated along with historic and ?? current clinical information. ?? COMMENT: [facility]MENT [facility] Comment: This Pap test has been evaluated with computer assisted technology. Microscopic features suggestive of lubricant. Lubricant jellies may interfere with slide preparation; their use is not recommended. Airborne Operations Manager: SEE COMMENT [facility] Comment: BJ, CT(ASCP) CT screening location: [address] ??[id number] HPV nRNA E6/E7 Not Detected Not Detected [facility] Comment: Methodology: Stock Trader-Mediated Amplification This assay detects E6/E7 viral messenger RNA (mRNA) from 14 high-risk HPV types (16,18,31,33,35,39,45,51,52,56,58,59,66,68). ? Cervical sources are required for HPV testing. If a vaginal source from a patient who has had a total hysterectomy with removal of cervix was ?? submitted, please contact the testing laboratory for alternative testing options. ?? For additional information, please refer to http://education.[employer].Track the Bet/faq/[email or web address] (This link if provided for information/ educational purposes only.) Interpretation/Res ult: SEE COMMENT [facility] Comment: Negative for intraepithelial lesion or malignancy. Atrophic pattern; predominantly parabasal cells LMP: MENOPAUSE @40 [facility] Prev. BX: NONE GIVEN [facility] Prev. PAP: NIL 2017 NIL 2013 [facility] SOURCE: None given [facility] Statement Of Adequacy: SATISFACTORY FOR EVALUATION [facility] 05/28/2022 10:3 1 AM EDT Silvia Cordova CNM LAB PATHOLOGY ORDERABLES Final Result [facility] [address] * HM Hepatitis C Antibody (02/11/2015) Hepatitis C Antibody Nonreactive Blood Abimael Mario MD HEALTH MAINTENANCE Final Result from Last 3 Months or Most Recently Relevant to Health Maintenance Insurance [facility] Care Teams Doctor Of Chiropractic Relationship Specialty Start Date End Date Name, MD Abimael [address] [place] [phone] PCP - General Family Medicine 09/24/19
--- OUTSIDE RECORDS SUMMARY | 2024-12-24 14:31 | XMS_ITS | Encounter Summary ---
Author Organization [facility] Address [address] [place] [address] Care Team Providers Care Faucets Assembler Name Role Phone Name, Abimael ARANDA Primary Care Provider [phone] Reason for Visit * Reason Comments Follow-up Encounter Details Date Type Department Care Team ([facility] st Contact Info) Description 12/24/2024 11:30 AM EST Office Visit [facility] [address] [place], [place] [phone] Name, MD Abimael [address] [place] [address] Type 2 diabetes mellitus without complication, without long-term current use of insulin ([facility]) (Primary Dx); Essential hypertension; Fibromyositis Social History Tobacco Use Types Packs/Day Years [...] AM EDT documented as of this encounter Last Filed Vital Signs Vital Sign Reading [...] Mass Index 32.3 12/24/2024 11:30 AM EST documented in this encounter Progress Notes * Abimael Mario MD - 12/24/2024 11:30 AM EST Subjective Patient ID: Luz Klein is a 64 y.o. female who presents for Follow-up. Patient comes for a follow-up visit. She complains of bodyaches. She denies any URI symptoms. She specifically denied fever, chills, nausea, vomiting, sore throat, cough. She had mild case of COVID last week and has a personal history of fibromyalgia and she is also treated with aromatase inhibitors because of her history of breast cancer. She asked me to refill her Tylenol and I agreed. Her blood sugar continues to be diet controlled. She has a personal history of type 2 diabetes induced by the use of steroids during the time she was getting chemotherapy for breast cancer. Her hemoglobin A1c has been below 6.5 without the use of medication since she stopped using steroids. Today her blood pressure is elevated. She assures me she is using her losartan daily. She has a BP monitor at home but she has not been checking her blood pressure. Review of Systems Constitutional: Negative for chills and fever. HENT: Negative for sore throat. Respiratory: Negative for cough, shortness of breath and wheezing. Cardiovascular: Negative for chest pain, palpitations and leg swelling. Gastrointestinal: Negative for abdominal pain. Musculoskeletal: Positive for arthralgias. Visit Vitals BP (!) 146/77 (BP Location: Left arm, Patient Position: Sitting, BP Cuff Size: Large adult) Pulse 88 Temp 98.9 ??F (37.2 ??C) (Oral) Resp 20 Ht 5' (1.524 m) Wt 165 lb 6.4 oz (75 kg) SpO2 98% BMI 32.30 kg/m?? OB Status Postmenopausal Smoking Status Never BSA 1.78 m?? Objective Physical Exam Constitutional: Appearance: Normal appearance. Cardiovascular: Rate and Rhythm: Normal rate and regular rhythm. Heart sounds: No murmur heard. No gallop. Pulmonary: Effort: Pulmonary effort is normal. No respiratory distress. Breath sounds: Normal breath sounds. No wheezing. Musculoskeletal: General: No swelling. Right lower leg: No edema. Left lower leg: No edema. Neurological: Mental Status: She is alert. Lab Results Component Value Date HGBA1C 6.2 (A) 08/12/2024 HGBA1C 6.0 03/05/2024 HGBA1C 5.7 08/23/2023 HGBA1C 5.5 12/06/2022 HGBA1C 5.7 (H) 04/26/2022 HGBA1C 5.0 03/31/2021 Current Outpatient Medications on File Prior to Visit Medication Sig Dispense Refill Blood Pressure kit For daily home use 1 kit 0 cholecalciferol VITAMIN D (Vitamin D-3) 50 MCG (1999 UT) tablet TAKE 1 TABLET BY MOUTH ONCE DAILY 90 tablet 1 clonazePAM (KlonoPIN) 0.5 MG tablet TAKE 1 TABLET BY MOUTH ONCE DAILY NEEDED DULoxetine (Cymbalta) [address] capsule Take 20 mg by mouth in the morning. DULoxetine (Cymbalta) [address] capsule TAKE 1 CAPSULE BY MOUTH EVERY MORNING 30 capsule 3 Ergocalciferol 50 MCG (2000 UT) tablet Take 1 tablet by mouth once a day 90 tablet 1 fluticasone (Flonase) 50 MCG/ACT nasal spray Administer 2 sprays into each nostril Once per day. 16g 3 ketotifen (Zaditor) 0.025 % ophthalmic solution INSTILL 1 DROP IN AFFECTED EYE(S) TWICE DAILY 10 mL1 letrozole (Femara) 2.5 MG chemo tablet Take 1 tablet by mouth in the morning. loratadine (Claritin) 10 MG tablet TAKE 1 TABLET BY MOUTH EVERY DAY IN THE MORNING 90 tablet 1 losartan (Cozaar) 50 MG tablet TAKE 1 TABLET BY MOUTH EVERY MORNING 90 tablet 3 pantoprazole (ProtoNix) 20 MG EC tablet TAKE 1 TABLET BY MOUTH EVERY DAY 90 tablet 3 pravastatin (Pravachol) 20 MG tablet TAKE 1 TABLET BY MOUTH EVERY MORNING 30 tablet 11 Ventolin HFA 108 (90 Base) MCG/ACT inhaler INHALE 2 PUFFS BY MOUTH EVERY 6 HOURS NEEDED FOR WHEEZING OR SHORTNESS OF BREATH 18 g 2 [DISCONTINUED] Acetaminophen Extra Strength 500 MG tablet TAKE 1 TABLET BY MOUTH EVERY 8 HOURS NEEDED FOR PAIN 60 tablet 2 [DISCONTINUED] benzonatate (Tessalon Perles) 100 MG capsule Take 1 capsule (100 mg) by mouth if needed in the morning, at noon, and at bedtime for cough for up to 10 days. Do not crush or chew. 30 capsule 0 [DISCONTINUED] FREESTYLE LITE test strip TEST BLOOD SUGAR EVERY DAY 50 strip 6 [DISCONTINUED] Nirmatrelvir&Ritonavir 300/100 (Paxlovid, 300/100,) 20 x 150 MG & 10 x 100MGtablet therapy pack Take 1 Dose by mouth 2 times daily for 5 days. 30 each 0 [DISCONTINUED] TRUEplus Lancets 33G misc TEST BLOOD SUGAR ONCE DAILY 100 each 11 No current facility-administered medications on file prior to visit. Assessment/Plan Diagnoses and all orders for this visit: Type 2 diabetes mellitus without complication, without long-term current use of insulin ([facility]) Comments: Continue to avoid sweets. Walk daily. I prescribed a new glucose meter for home use. No meds recommended Orders: - POCT Glucose - Alcohol Swabs 70 % pads; Use to test blood sugar 1 times daily - Basic Metabolic Panel; Future Essential hypertension Comments: I asked her to check BP at home. Write down the numbers once a day. Follow-up with team nurse next week. If BP still high I will double losartan and recheck a BMP next week. Orders: - Basic Metabolic Panel; Future Fibromyositis Comments: I recommended to keep walking and as needed Tylenol. Recent increase in body aches probably has to do with recent COVID infection. Other orders - glucose blood (FREESTYLE LITE) test strip; TEST BLOOD SUGAR EVERY DAY - Blood Glucose Monitoring Suppl (FreeStyle Kirby Lite) w/Device kit; Use to test blood sugar 1 times daily - Lancets misc; Use to test blood sugar 1 times daily - Acetaminophen Extra Strength 500 MG tablet; Take 1 tablet (500 mg) by mouth every 8 (eight) hoursif needed (pain). documented in this encounter Plan of Treatment Upcoming Encounters Date Type Department Care Team (Late st Contact Info) Description 01/01/2025 11:30 AM EST Clinical Support [facility] MEDICINE [address] [place] [phone] Scheduled Orders Name Type Priority Associated Diagnoses Orde r Schedule Basic Metabolic Panel Lab Routine Type 2 diabetes mellitus without complication, without long-term current use of insulin ([facility]) Essential hypertension Expected: 12/24/2024 (Approximate), Expires: 12/24/2025 documented as of this encounter Procedures Procedure Name Priority Date/Time Associated Diagnosis Comments POCT GLUCOSE Routine 12/24/2024 11:44 AM EST Type 2 diabetes mellitus without complication, without long-term current use of insulin ([facility]) documented in this encounter Results * POCT Glucose (12/24/2024 11:44 AM EST) Glucose Blood, POC 126 60 - 200 mg/dL QC Media Lot # [id number] Lot# Expiration Date 82,625 Blood Capillary blood specimen / Unknown 12/24/2024 11:44 AM EST Abimael Name MD POINT OF CARE TEST ENTER/EDIT OR DERABLES Final Result documented in this encounter Visit Diagnoses Diagnosis Type 2 diabetes mellitus without complication, without long-term current use of insulin ([facility])- Primary Essential hypertension Unspecified essential hypertension Fibromyositis Unspecified myalgia and myositis documented in this encounter Additional Health Concerns Assessment Noted Time PHQ-9 Depression Total Score: 0 03/05/20 24 9:36 AM EDT documented as of this encounter Care Teams Faucets Assembler Relationship Specialty Start Date End Date Name, MD Abimael [address] [place] [address] PCP - General Family Medicine 09/24/19 documented as of this encounter
--- OUTSIDE RECORDS SUMMARY | 2024-12-24 14:31 | XMS_ITS | Encounter Summary ---
Author Organization [facility] Address [address] [place] [address] [address] [place] [address] Care Team Providers Care Cut Off Sawyer Name Role Phone Name, Abimael ARANDA Primary Care Provider [phone] Encounter Details Date Type Department Care Team (Late st Contact Info) Description 12/28/2022 Orders Only [address] [phone] Rena Rivera LPN Social History Tobacco Use Types Packs/Day [...] Description 01/01/2025 11:30 AM EST Clinical Support [address] [phone] documented as of this encounter Visit Diagnoses Not on filedocumented in this encounter Care Teams Cut Off Sawyer Relationship Specialty Start Date End Date Name, MD Abimael [address] [place] [phone] PCP - General Family Medicine 09/24/19 documented as of this encounter
--- OUTSIDE RECORDS SUMMARY | 2024-12-24 14:31 | XMS_ITS | Encounter Summary ---
Author Organization [employer] Address [address] [place] [address] Care Team Providers Care Shift Commander Name Role Phone Name, Abimael ARANDA Primary Care Provider [phone] Reason for Visit * Reason Comments Med Refill Encounter Details Date Type Department Care Team (Late st Contact Info) Description 12/09/2024 Refill [facility] MEDICINE [address] [place], [place] [phone] Name, MD Abimael [address] [place], [place] [phone] Social History Tobacco Use Types Packs/Day Years [...] Description 01/01/2025 11:30 AM EST Clinical Support [facility] MEDICINE [address] [place] [address] documented as of this encounter Visit Diagnoses Not on filedocumented in this encounter Additional Health Concerns Assessment Noted Time PHQ-9 Depression Total Score: 0 03/05/20 24 9:36 AM EDT documented as of this encounter Care Teams Shift Commander Relationship Specialty Start Date End Date Name, MD Abimael [address] [place] [address] PCP - General Family Medicine 09/24/19 documented as of this encounter
--- OUTSIDE RECORDS SUMMARY | 2024-12-24 14:31 | XMS_ITS | Encounter Summary ---
Author Organization [employer] Address [address] [place] [address] Care Team Providers Care Remotely Operated Vehicle Name Role Phone Name, Abimael ARANDA Primary Care Provider [phone] Encounter Details Date Type Department Care Team (Late st Contact Info) Description 12/17/2024 3:20 PM EST Office Visit [facility] [address] [place], [place] [phone] Heather Hodge DO [address] [place], [place] [phone] COVID (Primary Dx); Cough, unspecified type Social History Tobacco Use Types Packs/Day Years [...] Sign Reading Time Taken Comments Blood Pressure 132/68 12/17/2024 3:54 PM EST Pulse 96 12/17/2024 3:54 PM EST Temperature 35.8 ??C (96.5 ??F) 12/17/2024 3:20 PM ES T Respiratory Rate 21 12/17/2024 3:20 PM EST Oxygen Saturation 97% 12/17/2024 3:54 PM EST Inhaled Oxygen Concentration - - Weight 76.4 kg (168 lb 8 oz) 12/17/2024 3:20 PM EST Height 152.4 cm (5') 12/17/2024 3:20 PM EST Body Mass Index 32.91 12/17/2024 3:20 PM EST documented in this encounter Progress Notes * Heather Hodge, DO - 12/17/2024 3:20 PM EST SUBJECTIVE: Luz Klein is a 64 y.o. year old female who presents for sick visit . HPI She comes to [place] today to get checked for COVID. She takes care of her grandson and her dtr called her this morning and told her that her GS tested positive for COVID. She says that she feels fine. She has been having nasal congestion and runny nose for the last 3 days. She has had mild cough. She denies any SOB. She has not had any fevers. No headache or body aches. No ST or ear pain. No N/V/D. No rash. She took her BP meds this morning. She says that her BP is always high. History provided by: Patient sales operations specialist used: Yes Cough This is a new problem. The current episode started in the past 7 days. The problem has been unchanged. The cough is Productive of sputum. Associated symptoms include nasal congestion, postnasal drip and rhinorrhea. Pertinent negatives include no chest pain, chills, ear congestion, ear pain, fever, h eadaches, rash, sore throat, shortness of breath or wheezing. Her past medical history is significant for asthma. Review of Systems Constitutional: Negative for chills and fever. HENT: Positive for congestion, postnasal drip and rhinorrhea. Negative for ear pain and sore throat. Respiratory: Positive for cough. Negative for shortness of breath and wheezing. Cardiovascular: Negative for chest pain. Gastrointestinal: Negative for abdominal pain, diarrhea and vomiting. Skin: Negative for rash. Neurological: Negative for headaches. Patient Active Problem List Diagnosis Fibromyositis Essential hypertension Dyslipidemia Depressive disorder Closed fracture of ankle Bursitis of shoulder Breast cancer in female (CMS/HCC) Atypical ductal hyperplasia of breast Anxiety disorder Type 2 diabetes mellitus (CMS/HCC) Syncope Steroid-induced diabetes (CMS/HCC) Mild intermittent asthma Infiltrating ductal carcinoma of right breast (CMS/HCC) Statin intolerance Allergies Allergen Reactions Acetaminophen Amitriptyline Other reaction(s): nausea, blurry vision Naproxen Other reaction(s): EDEMA Oxycodone Oxycodone-Acetaminophen Penicillin G Aspirin Nausea And Vomiting and Rash At face Morphine Rash OBJECTIVE Vitals: 12/17/24 1520 12/17/24 1554 BP: (!) 161/99 132/68 BP Location: Right arm Left arm Patient Position: Sitting Sitting BP Cuff Size: Adult Large adult Pulse: (!) 114 96 Resp: 21 Temp: 96.5 ??F (35.8 ??C) TempSrc: Oral SpO2: 97% 97% Weight: 168 lb 8 oz (76.4 kg) Height: 5' (1.524 m) Physical Exam Constitutional: General: She is not in acute distress. Appearance: Normal appearance. HENT: Right Ear: Tympanic membrane, ear canal and external ear normal. Left Ear: Tympanic membrane, ear canal and external ear normal. Nose: Congestion present. No rhinorrhea. Mouth/Throat: Pharynx: Posterior oropharyngeal erythema present. No oropharyngeal exudate. Cardiovascular: Rate and Rhythm: Normal rate and regular rhythm. Heart sounds: Normal heart sounds. No murmur heard. Pulmonary: Effort: Pulmonary effort is normal. Breath sounds: Normal breath sounds. No wheezing or rhonchi. Musculoskeletal: Cervical back: Neck supple. No tenderness. Lymphadenopathy: Cervical: No cervical adenopathy. Neurological: General: No focal deficit present. Mental Status: She is alert and oriented to person, place, and time. Cranial Nerves: No cranial nerve deficit. Motor: No weakness. Gait: Gait normal. Psychiatric: Mood and Affect: Mood normal. Office Visit on 12/17/2024 Component Date Value Ref Range Status Influenza A 12/17/2024 Negative Negative, Indeterminate Final QC Media Lot # 12/17/2024 [id number] Final Lot# Expiration Date 12/17/2024 [id number],[id number] Final Rapid Strep A Screen 12/17/2024 Negative Negative, None Detected Final QC Media Lot # 12/17/2024 [id number] Final Lot# Expiration Date 12/17/2024 [id number] Final Rapid COVID Ag 12/17/2024 Positive Corrected QC Media Lot # 12/17/2024 [id number] Final Lot# Expiration Date 12/17/2024 [id number] Final Influenza B 12/17/2024 Negative Negative, Indeterminate Final QC Media Lot # 12/17/2024 [id number] Final Lot# Expiration Date 12/17/2024 [id number],[id number] Final ASSESSMENT/PLAN Diagnoses and all orders for this visit: COVID Well appearing -provided reassurance -encouraged supportive care measures -advised stay well hydrated -reviewed isolation and mask recommendations with patient -avoid sharing household items -treat with paxlovid BID x 5 days, reviewed med interactions with [facility] pharmacist, pt advised to hold statin for 8 days -encouraged claritin and flonase daily -trial tessalon perles prn -encouraged tylenol as needed -albuterol prn -advised rtc or go to ED if sx change or worsen, she agrees with plans Cough, unspecified type - POCT Rapid Influenza A MEYERS ID NOW - POCT Rapid Strep A MEYERS ID NOW - POCT Rapid Covid-19 BinaxNOW - POCT Rapid Influenza B MEYERS ID NOW F/U with PCP as scheduled or sooner prn Current Outpatient Medications: Acetaminophen Extra Strength 500 MG tablet, TAKE 1 TABLET BY MOUTH EVERY 8 HOURS NEEDED FOR PAIN, Disp: 60 tablet, Rfl: 2 benzonatate (Tessalon Perles) 100 MG capsule, Take 1 capsule (100 mg) by mouth if needed in the morning, at noon, and at bedtime for cough for up to 10 days. Do not crush or chew., Disp: 30 capsule, Rfl: 0 Blood Pressure kit, For daily home use, Disp: 1 kit, Rfl: 0 cholecalciferol VITAMIN D (Vitamin D-3) 50 MCG (1999 UT) tablet, TAKE 1 TABLET BY MOUTH ONCE DAILY,Disp: 90 tablet, Rfl: 1 clonazePAM (KlonoPIN) 0.5 MG tablet, TAKE 1 TABLET BY MOUTH ONCE DAILY NEEDED, Disp: , Rfl: DULoxetine (Cymbalta) [address] capsule, Take 20 mg by mouth in the morning., Disp: , Rfl: DULoxetine (Cymbalta) [address] capsule, TAKE 1 CAPSULE BY MOUTH EVERY MORNING, Disp: 30 capsule, Rfl: 3 Ergocalciferol 50 MCG (1999 UT) tablet, Take 1 tablet by mouth once a day, Disp: 90 tablet, Rfl: 1 fluticasone (Flonase) 50 MCG/ACT nasal spray, Administer 2 sprays into each nostril Once per day., Disp: 16 g, Rfl: 3 FREESTYLE LITE test strip, TEST BLOOD SUGAR EVERY DAY, Disp: 50 strip, Rfl: 6 ketotifen (Zaditor) 0.025 % ophthalmic solution, INSTILL 1 DROP IN AFFECTED EYE(S) TWICE DAILY, Disp: 10 mL, Rfl: 1 letrozole (Femara) 2.5 MG chemo tablet, Take 1 tablet by mouth in the morning., Disp: , Rfl: loratadine (Claritin) 10 MG tablet, TAKE 1 TABLET BY MOUTH EVERY DAY IN THE MORNING, Disp: 90 tablet, Rfl: 1 losartan (Cozaar) 50 MG tablet, TAKE 1 TABLET BY MOUTH EVERY MORNING, Disp: 90 tablet, Rfl: 3 Nirmatrelvir&Ritonavir 300/100 (Paxlovid, 300/100,) 20 x 150 MG & 10 x 100MG tablet therapypack, Take 1 Dose by mouth 2 times daily for 5 days., Disp: 30 each, Rfl: 0 pantoprazole (ProtoNix) 20 MG EC tablet, TAKE 1 TABLET BY MOUTH EVERY DAY, Disp: 90 tablet, Rfl: 3 pravastatin (Pravachol) 20 MG tablet, TAKE 1 TABLET BY MOUTH EVERY MORNING, Disp: 30 tablet, Rfl: 11 TRUEplus Lancets 33G misc, TEST BLOOD SUGAR ONCE DAILY, Disp: 100 each, Rfl: 11 Ventolin HFA 108 (90 Base) MCG/ACT inhaler, INHALE 2 PUFFS BY MOUTH EVERY 6 HOURS NEEDED FOR WHEEZING OR SHORTNESS OF BREATH, Disp: 18 g, Rfl: 2 documented in this encounter Plan of Treatment Upcoming Encounters Date Type Department Care Team (Late st Contact Info) Description 01/01/2025 11:30 AM EST Clinical Support [facility] MEDICINE [address] [place] [phone] documented as of this encounter Procedures Procedure Name Priority Date/Time Associated Diagnosis Comments POCT INFLUENZA A (ID NOW RAPID MOLECULAR) Routine 12/17/2024 3:48 PM EST Cough, unspecified type POCT INFLUENZA B (ID NOW RAPID MOLECULAR) Routine 12/17/2024 3:47 PM EST Cough, unspecified type POC MEYERS ID NOW STREP A Routine 12/17/2024 3:40 PM EST Cough, unspecified type POCT RAPID COVID ANTIGEN Routine 12/17/2024 3:38 PM EST Cough, unspecified type documented in this encounter Results * POCT Rapid Influenza A MEYERS ID NOW (12/17/2024 3:48 PM EST) Influenza A Negative Negative, Indeterminate [facility] QC Media Lot # [id number] [facility] Lot# Expiration Date [facility] Swab 12/17/2024 3:48 PM EST us Heather Hodge DO POINT OF CARE TEST ENTER/RAYRAY T ORDERABLES Final Result Performing Organization Address [facility]/ZIP Co de Phone Number [facility] [address] [place] [phone] * POCT Rapid Influenza B MEYERS ID NOW (12/17/2024 3:47 PM EST) [facility] Influenza B Negative Negative, Indeterminate [facility] QC Media Lot # [id number] [facility] Lot# Expiration Date [facility] Swab 12/17/2024 3:47 PM EST Heather Hodge DO POINT OF CARE TEST ENTER/RAYRAY T ORDERABLES Final Result Performing Organization Address [facility] Co de Phone Number [facility] [address] [place] [phone] * POCT Rapid Strep A MEYERS ID NOW (12/17/2024 3:40 PM EST) [facility] Rapid Strep A Screen Negative Negative, None Detected QC Media Lot # [id number] Lot# Expiration Date ,026 Swab 12/17/2024 3:40 PM EST Result [facility] Heather Hodge DO POINT OF CARE TEST ENTER/RAYRAY T ORDERABLES Final Result * (ABNORMAL) POCT Rapid Covid-19 BinaxNOW (12/17/2024 3:38 PM EST) [facility] Rapid COVID Ag Positive QC Media Lot # [id number] Lot# Expiration Date 7,026 Swab 12/17/2024 3:38 PM EST Heather Hodge DO POINT OF CARE TEST ENTER/RAYRAY T ORDERABLES Edited Result - Final documented in this encounter Visit Diagnoses Diagnosis COVID- Primary Cough, unspecified type documented in this encounter Additional Health Concerns Assessment Noted Time PHQ-9 Depression Total Score: 0 03/05/20 24 9:36 AM EDT documented as of this encounter Care Teams Remotely Operated Vehicle Relationship Specialty Start Date End Date Name, MD Abimael [address] [place] [address] PCP - General Family Medicine 09/24/19 documented as of this encounter
--- OUTSIDE RECORDS SUMMARY | 2024-12-24 14:31 | XMS_ITS | Clinical Summary ---
Author Organization [facility] [facility] Address [address] [place] [address] Care Team Providers Care Scientific Process Operator Name Role Phone Unavailable Primary Care Provider Unavailabl e Social History Tobacco Use Types Packs/Day Years Used Date Smoking Tobacco: Never Assessed Comments Unknown Sex and Gender Information Value Date Recorded Sex Assigned at Not on file Legal Sex Female 4:57 AM EST Gender Identity Not on file Sexual Orientation Not on file Plan of Treatment Health Maintenance Due Date Last Done Comments Breast Cancer Screening 1960 DTaP,Tdap,and Td Vaccines (1 - Tdap) 1981 Cervical Cancer Screening: P ap Smear 1983 Pneumococcal Vaccine: 50+ Ye ars (1 of 1 - PCV) 2012 Zoster Vaccines (1 of 2) 2012 COVID-19 Vaccine (1 - 2023-2 5 season) 2024 Influenza Vaccine (#1) 2024 RSV Immunization Patients 60 + Years Old (1 - 1-dose 75+ series) 2037 HIB Vaccines Aged Out No longer eligi [...] on patient's age to complete this topic MMR Vaccines Aged Out No longer eligi ble based on patient's age to complete this topic Meningococcal ACWY Vaccine Aged Out N o longer eligible based on patient's age to complete this topic Meningococcal B Vacine Aged Out No lo nger eligible based on patient's age to complete this topic Pneumococcal Vaccine: Pediat rics (0 to 5 Years) and At-Risk Patients (6 to 64 Years) Aged Out No longer eligible b ased on patient's age to complete this topic RSV Immunization Patients Un andres 20 months Aged Out No longer eligible b ased on patient's age to complete this topic Varicella Vaccines Aged Out No longer eligible based on patient's age to complete this topic
--- OUTSIDE RECORDS SUMMARY | 2024-12-24 14:31 | XMS_ITS | Encounter Summary ---
Author Organization [facility] Address [address] [place] [address] [address] [place] [address] Care Team Providers Care Manager Of Maintenance Name Role Phone Name, Abimael ARANDA Primary Care Provider [phone] Encounter Details Date Type Department Care Team (Late st Contact Info) Description 12/06/2022 Orders Only [address] [id number] Rena Rivera LPN Social History Tobacco Use [...] Description 01/01/2025 11:30 AM EST Clinical Support [address] [id number] documented as of this encounter Visit Diagnoses Not on filedocumented in this encounter Care Teams Manager Of Maintenance Relationship Specialty Start Date End Date Name, MD Abimael [address] [place] [id number] PCP - General Family Medicine 09/24/19 documented as of this encounter
[2024-12-24 16:29] LABS: Anion Gap 12 (12-20); Blood Urea Nitrogen 21 mg/dL (9-16); Calcium 9.9 mg/dL (8.4-10.2); Carbon Dioxide 23 mmol/L (22-29); Chloride 104 mmol/L (96-108); Estimated Glomerular Filt Rate > 60; Glucose Random 186 mg/dL (60-115); Sodium 135 mmol/L (135-145)
== END 2024-12-24 14:28 | disposition home or self-care (01) ==
LOC: HO.HHCL 14:27
PROVIDERS: Visit Provider Internal Medicine Geriatric Medicine
DX: E11.9 Type 2 diabetes mellitus without complications (principal); I10 Essential (primary) hypertension
CPT/HCPCS: 36415; 80048

== ENCOUNTER 2025-04-01 11:44 | Outpatient (REF) | payer OTHER, SELFPAY ==
--- OUTSIDE RECORDS SUMMARY | 2025-04-01 12:17 | XMS_ITS | Encounter Summary ---
Author Organization [employer] Address [address] [facility] [address] [place] [address] Care Team Providers Care Hose Inspector Name Role Phone Name, Abimael ARANDA Primary Care Provider [phone] Encounter Details Date Type Department Care Team ([facility] st Contact Info) Description 12/03/2022 Orders Only [facility] [address] [place] [address] Heather Obregon LPN Social History Tobacco Use [...] AM EST documented as of this encounter Functional Status * Over the past 2 weeks, how often have you been bothered by any of the following problems? Question Answer Date of Assessment Author Little interest or pleasure in doing things Not at all 12/06/2022 9:35 AM Mayra Decker [place] Feeling down, depressed, or hopeless Not at all 12/06/2022 9:35 AM Mayra Decker [place] Patient Health Questionnaire -2 Score 0 12/06/2022 9:35 AM Mayra Decker [place] documented as of this encounter Plan of Treatment Not on file documented as of this encounter Visit Diagnoses Not on filedocumented in this encounter Care Teams Hose Inspector Relationship Specialty Start Date End Date Name, MD Abimael [address] [place] [address] PCP - General Family Medicine 09/24/19 documented as of this encounter
--- OUTSIDE RECORDS SUMMARY | 2025-04-01 12:17 | XMS_ITS | Encounter Summary ---
Author Organization [email or web address] Address [address] [place] [address] [address] [place] [address] Care Team Providers Care Industrial Locomotive Operator Name Role Phone Name, Abimael ARANDA Primary Care Provider [phone] Encounter Details Date Type Department Care Team ([facility] st Contact Info) Description 12/06/2022 Orders Only [facility] [address] [place], [place] [id number] Rena Rivera LPN Social History Tobacco Use [...] on filedocumented in this encounter Care Teams Industrial Locomotive Operator Relationship Specialty Start Date End Date Name, MD Abimael [address] [facility] [place] [address] PCP - General Family Medicine 09/24/19 documented as of this encounter
--- OUTSIDE RECORDS SUMMARY | 2025-04-01 12:17 | XMS_ITS | Continuity of Care Document ---
Author Organization [employer] [facility] Address [address] [place] [address] Care Team Providers Care Stamp Press Operator Name Role Phone Jeanne ARANDA, Casper Unavailable Unavailab le Allergies, Adverse Reactions, Alerts Substance Reaction Status Criticality No Known Allergies Active No Inform ation No Known Allergies Active No Inform ation No Known Allergies Active No Inform ation Medications Medication Instructions Dosage Effective Dates (start - stop) Status Comments Rituxan 10 mg/mL concentrate,intraven ous infuse 500 mg day 1, then repeat day 15 at the [facility] infusion center - Active Prolia 60 mg/mL subcutaneous syringe inject 1 milliliter by subcutaneous route every 6 months in the upper arm, upper thigh or abdomen 60 MG - Active methotrexate sodium 2.5 mg tablet take 8 Tablets by mouth once weekly ON Saturdays. - Active folic acid 1 mg tablet take 1 tablet daily - Active clobetasol 0.05 % scalp solution apply by topical route 2-3 times per week to the affected scalp area in the evening prior to washing hair following morning - Active ketoconazole 2 % shampoo apply by topical route 3 times every week to the affected area(s), lather, leave in place for 5 minutes, and then rinse off with water Not Available - Active meloxicam 15 mg tablet take 1 tablet daily with food if needed for pain (STOP IBUPROFEN / ADVIL / ALEVE / MOTRIN) - Active multivitamin tablet - Active Procedures Procedure Date Offic/Outpt E&M Estab Low-Mod 5 Systolic BP Under 130 Mm Hg Diastolic BP Under 80 Mm Hg BODY MASS INDEX DOCD Offic/Outpt E&M Estab Low-Mod 4 Systolic BP Under 130 Mm Hg Diastolic BP Under 80 Mm Hg BODY MASS INDEX DOCD Spec Report Grtr Info In Usual Med Form Offic/Outpt E&M Estab [facility] Systolic BP Under 130 Mm Hg Diastolic BP Under 80 Mm Hg BODY MASS INDEX [facility] Postop F/U Visit [employer] Systolic BP Under 130 Mm Hg Diastolic BP Under 80 Mm Hg Postop F/U Visit [employer] Fusion Of Big Toe Joint Part Exc Bone Tarsal Ex Talus 4 Hammertoe Or; 1 Toe Remov Implnt; Deep Part Exc Bone Tarsal Ex Talus 4 Part Exc Bone Tarsal Ex Talus 4 Part Exc Bone Tarsal Ex Talus 4 Hammertoe Or; 1 Toe Hammertoe Or; 1 Toe Hammertoe Or; 1 Toe Unlisted E&M Service Offic/Outpt E&M Estab [facility] Systolic BP Under 130 Mm Hg Diastolic BP Under 80 Mm Hg Pneumati walking boot prefab Offic/Outpt E&M Estab [facility] Unlisted E&M Service Offic/Outpt E&M Estab Mod-Ok Unlisted E&M Service Systolic BP Under 130 Mm Hg Diastolic BP Under 80 Mm Hg BODY MASS INDEX [facility] Office/outpatient visit est Offic/Outpt E&M Estab Low-Mod 3 Office/outpatient visit new Systolic BP Under 130 Mm Hg Diastolic BP Under 80 Mm Hg BODY MASS INDEX [facility] Noninvasv Stdy-Up/Lo Extm Art 1 Lev Preven Meds E&M Estab Pt; 40-64 Yr Offic/Outpt E&M Estab Low-Mod 3 Unlisted E&M Service Systolic BP Under 130 Mm Hg Diastolic BP Under 80 Mm Hg BODY MASS INDEX [facility] Offic/Outpt E&M Estab Mod-Ok Unlisted E&M Service Systolic BP Under 130 Mm Hg Diastolic BP Under 80 Mm Hg BODY MASS INDEX [facility] Offic/Outpt E&M Estab Mod-Ok Systolic BP Under 130 Mm Hg Diastolic BP Under 80 Mm Hg Offic/Outpt E&M Estab Mod-Ok Unlisted E&M Service Systolic BP Under 130 Mm Hg Diastolic BP Under 80 Mm Hg BODY MASS INDEX [facility] Offic/Outpt E&M Estab Low-Mod 2 Offic/Outpt E&M Estab Low-Mod 2 Offic/Outpt E&M Estab Mod-Ok Unlisted E&M Service Offic/Outpt E&M Estab Mod-Ok Systolic BP Under 130 Mm Hg Diastolic BP Between 80-89 Mm Hg 2020 BODY MASS INDEX [facility] Office/outpatient visit new Office/outpatient visit est Office/outpatient visit est Offic/Outpt E&M Estab [facility] Systolic BP Under 130 Mm Hg Diastolic BP Under 80 Mm Hg BODY MASS INDEX [facility] Offic/Outpt E&M Estab [facility] Systolic BP Under 130 Mm Hg Diastolic BP Under 80 Mm Hg BODY MASS INDEX [facility] Offic/Outpt E&M Estab [facility] Diastolic BP Under 80 Mm Hg Systolic BP Under 130 Mm Hg BODY MASS INDEX [facility] Offic/Outpt E&M Estab [facility] Diastolic BP Under 80 Mm Hg Systolic BP Under 130 Mm Hg BODY MASS INDEX [facility] Offic/Outpt E&M Estab [facility] Diastolic BP Under 80 Mm Hg Systolic BP Under 130 Mm Hg BODY MASS INDEX [facility] Offic/Outpt E&M Estab [facility] BODY MASS INDEX [facility] Systolic BP Under 130 Mm Hg Diastolic BP Under 80 Mm Hg Manual Therapy Techniques One Or More Re Wesley laughlin Therapeutic Proc 15 Min Therap Exerc May Modality To One Or More Areas;Hot Or Col d Packs PT EVAL LOW COMPLEX 20 MIN Therapeutic Proc 15 Min Therap Exerc Apr Offic/Outpt E&M Estab [facility] Systolic BP Under 130 Mm Hg Diastolic BP Under 80 Mm Hg Offic/Outpt E&M Estab [facility] BODY MASS INDEX [facility] Systolic BP Under 130 Mm Hg Diastolic BP Under 80 Mm Hg Offic/Outpt E&M Estab Low-Mod 6 Therapeutic Proc 15 Min Therap Exerc Sep Modality To One Or More Areas;Hot Or Col d Packs Application Of Modality, Electrical Stim ulation Therapeutic Proc 15 Min Therap Exerc Sep Manual Therapy Techniques One Or More Re gineftali, Wesley Modality To One Or More Areas;Hot Or Col d Packs Therapeutic Proc 15 Min Therap Exerc Aug Manual Therapy Techniques One Or More Re gions, Ea Modality To One Or More Areas;Hot Or Col d Packs Therapeutic Proc 15 Min Therap Exerc Aug Manual Therapy Techniques One Or More Re gions, Ea Modality To One Or More Areas;Hot Or Col d Packs Therapeutic Proc 15 Min Therap Exerc Aug Manual Therapy Techniques One Or More Re truman, Wesley Modality To One Or More Areas;Hot Or Col d Packs Offic/Outpt E&M Estab Mod-Hi BODY MASS INDEX DOCD Systolic BP Under 130 Mm Hg Diastolic BP Under 80 Mm Hg Modality To One Or More Areas;Hot Or Col d Packs Therapeutic Proc 15 Min Therap Exerc Jul Therapeutic Proc 15 Min Therap Exerc Jun Manual Therapy Techniques One Or More Re Wesley laughlin Modality To One Or More Areas;Hot Or Col d Packs Therapeutic Proc 15 Min Therap Exerc May Manual Therapy Techniques One Or More Re gineftali Ea Modality To One Or More Areas;Hot Or Col d Packs Physical Therapy Evaluation Therapeutic Proc 15 Min Therap Exerc May Manual Therapy Techniques One Or More Re truman Ea Modality To One Or More Areas;Hot Or Col d Packs Application Of Modality, Electrical Stim ulation Arthrocentesis/Aspir/Inj; Interm Jt Kenalog (Triamcinolone Acetonide) 10 Mg Kenalog (Triamcinolone Acetonide) 10 Mg Offic/Outpt E&M Estab Mod-Ok BODY MASS INDEX [facility] Systolic BP Under 130 Mm Hg Diastolic BP Between 80-89 Mm Hg 2015 Offic/Outpt E&M Estab Mod-Ok BODY MASS INDEX [facility] Systolic BP Under 130 Mm Hg Diastolic BP Under 80 Mm Hg Offic/Outpt E&M Estab Low-[facility] 5 Offic/Outpt E&M Estab Mod-Ok BODY MASS INDEX [facility] Systolic BP Under 130 Mm Hg Diastolic BP Under 80 Mm Hg Offic/Outpt E&M Estab Mod-Ok Systolic BP Under 130 Mm Hg Diastolic BP Under 80 Mm Hg BODY MASS INDEX [facility] Offic/Outpt E&M Estab Mod-Ok Systolic BP Under 130 Mm Hg Diastolic BP Under 80 Mm Hg BODY MASS INDEX [facility] Offic/Outpt E&M Estab Low-[facility] 5 Offic/Outpt E&M Estab Mod-Ok Systolic BP Under 130 Mm Hg Diastolic BP Under 80 Mm Hg Offic/Outpt E&M Estab Mod-Ok Systolic BP Under 130 Mm Hg Diastolic BP Between 80-89 Mm Hg 2014 Offic/Outpt E&M Estab Low-[facility] 5 Offic/Outpt E&M Estab Mod-Ok Systolic BP Under 130 Mm Hg Diastolic BP Between 80-89 Mm Hg 2014 BODY MASS INDEX [facility] Arthrocentesis/Aspir/Inj; Interm Jt Kenalog (Triamcinolone Acetonide) 10 Mg Offic/Outpt E&M Estab Mod-Ok Systolic BP Under 130 Mm Hg Diastolic BP Under 80 Mm Hg BODY MASS INDEX [facility] Office Cons New Arthrocentesis/Aspir/Inj; Interm Jt Kenalog (Triamcinolone Acetonide) 10 Mg Offic/Outpt E&M Estab Mod-Ok Offic/Outpt E&M Estab Mod-Ok Offic/Outpt E&M Estab Mod-Ok Systolic BP Under 130 Mm Hg Diastolic BP Under 80 Mm Hg BODY MASS INDEX [facility] Offic/Outpt E&M Estab Mod-Ok Systolic BP Under 130 Mm Hg Diastolic BP Under 80 Mm Hg BODY MASS INDEX [facility] Kenalog (Triamcinolone Acetonide) 10 Mg Offic/Outpt E&M Estab Mod-Ok Systolic BP Under 130 Mm Hg Diastolic BP Under 80 Mm Hg BODY MASS INDEX [facility] Admin Theraputic,Prophy,Diag Inject Systolic BP Under 130 Mm Hg Diastolic BP Under 80 Mm Hg Offic/Outpt E&M Estab Mod-Ok Prescription Transmitted Electronically Offic/Outpt E&M Estab Mod-Ok Prescription Transmitted Electronically Systolic BP Under 130 Mm Hg Diastolic BP Under 80 Mm Hg Systolic BP Under 130 Mm Hg Diastolic BP Under 80 Mm Hg Offic/Outpt E&M Estab Mod-Ok Prescription Transmitted Electronically Systolic BP Under 130 Mm Hg Diastolic BP Under 80 Mm Hg Offic/Outpt E&M Estab Mod-Ok 25 Min Prescription Transmitted Electronically Offic/Outpt E&M Estab Mod-Ok 25 Min Prescription Transmitted Electronically Kenalog (Triamcinolone Acetonide) 10 Mg Admin Theraputic,Prophy,Diag Inject Systolic BP Under 130 Mm Hg Diastolic BP Under 80 Mm Hg Arthrocentesis/Aspir/Inj; Major Jt Kenalog (Triamcinolone Acetonide) 10 Mg Offic/Outpt E&M Estab Mod-Hi 25 Min Systolic BP Under 130 Mm Hg Diastolic BP Under 80 Mm Hg Offic/Outpt E&M Estab Mod-Hi 25 Min Kenalog (Triamcinolone Acetonide) 10 Mg Admin Theraputic,Prophy,Diag Inject Systolic BP Under 130 Mm Hg Diastolic BP Between 80-89 Mm Hg 2011 Offic/Outpt E&M Estab Mod-Hi 25 Min Offic/Outpt E&M Estab Mod-Hi 25 Min Offic/Outpt E&M Estab Mod-Hi 25 Min Offic/Outpt E&M Estab Mod-Hi 25 Min Offic/Outpt E&M Estab Mod-Hi 40 Min Offic/Outpt E&M Estab Mod-Hi 25 Min Offic/Outpt E&M Estab Mod-Hi 25 Min Offic/Outpt E&M Estab Mod-Hi 25 Min Offic/Outpt E&M Estab Mod-Hi 25 Min Offic/Outpt E&M Estab Mod-Hi 25 Min Advance Directives Directive Yes / No Effective Date File Name No Information Encounters Encounter Description Practice Location Reason(s) For Visit Diagnoses Date Provider Providers Copied on Encounter [facility] , [address], [place], [place], [id number], [place] [facility] 200 LMO No Information 5 Jeanne Shirley. [address] [facility], [address], [place], [place], [address], [place]. tel:[phone] Offic[facility]Outpt [facility] , [address], [place], [place], [address], [place] [address] LMO RA. (chief complaint) Seropositive rheumatoid arthritisImmun osuppression due to drug therapyHigh risk medication useAge-related osteoporosis without current pathological fractureEncoun ter for examination of blood pressure without abnormal findingsBody mass index [BMI] 22.0-22.9, adult 5 Khachatrian Aelita. [address] [facility], [facility] [address], [place], [place], [address], [place]. tel:[phone] Offic/Outpt E&M [facility] , [address], [place], [id number], [place] [address] LMO RA. (chief complaint) Seropositive rheumatoid arthritisImmun osuppression due to drug therapyHigh risk medication useAge-related osteoporosis without current pathological fractureEncoun ter for examination of blood pressure without abnormal findingsBody mass index [BMI] 22.0-22.9, adult 4 Khachatrian Aelita. [address] [facility], [place] [address], [place], [place], [address], [place]. tel:[phone] [facility] , [address], [place], [place], [address], [place] [address] LMO No Information 4 Khachatrian Aelita. [address] [facility], [place] [address], [place], [place], [address], [place]. tel:[phone] Offic/Outpt E&M [facility] , [address], [place], [place], [address], [place] [address] LMO RA. (chief complaint) Seropositive rheumatoid arthritisImmun osuppression due to drug therapyHigh risk medication useAge-related osteoporosis without current pathological fractureEncoun ter for examination of blood pressure without abnormal findingsBody mass index [BMI] 22.0-22.9, adult 4 Khachatrian Aelita. [address] [facility], [address], [place], [address], [place]. tel:[phone] [facility] , [address], [place], [place], [address], [facility] 315 LMO Arterial ischemia Apr-1 4 Atj Deepal. [address] [facility], [address], [place], [address], [place]. tel:[phone] [facility] , [facility] [address], [place], [place], [address], [facility] 200 LMO Hallux varus (acquired), right foot Apr-1 - 4 Taj Deepal. [address] [facility], [address], [place], [address], [place]. tel:[phone] [facility] , [facility] [address], [place], [place], [address], [facility] 315 LMO Post Op (chief complaint) Hallux varus (acquired), right footRheumatoid arthritis with rheumatoid factor of right ankle and foot without organ or systems involvementOth er hammer toe(s) (acquired), right footArterial ischemiaEncoun ter for examination of blood pressure without abnormal findings Apr-11 11- 4 Taj Deepal. [address] [facility], [facility] [address], [place], [address], [place]. tel:[phone] [facility] , [facility] [address], [place], [address], [place] [facility] 315 LMO Other hammer toe(s) (acquired), right footRheumatoid arthritis with rheumatoid factor of right ankle and foot without organ or systems involvementHal lux varus (acquired), right footBunionette of right foot Apr-0 3- 4 Taj Deepal. [address] [facility], [address], [address], [place]. tel:[phone] Unlisted E&M Service [facility] , [facility] [address], [place], [place], [address], [place] [facility], [facility] Pain in unspecified ankle and joints of unspecified footOther hammer toe(s) (acquired), right footRheumatoid arthritis with rheumatoid factor of right ankle and foot without organ or systems involvementHal lux varus (acquired), right footBunionette of right foot Jan- 4 Taj Deepal. [address] [facility], [address], [id number], [place]. tel:[phone] Offic/Outpt E&M [facility] , [address], [place], [place], [address], [facility] 315 LMO pre op (chief complaint) Hallux varus (acquired), right footTailor's bunion of both feetOther acquired hammer toe of right footRheumatoid arthritis, unspecifiedEnc ounter for examination of blood pressure without abnormal findingsRheuma toid arthritis with rheumatoid factor of right ankle and foot without organ or systems involvement Jan-0 4 Taj Deepal. [address] [facility], [address], [id number], [place]. tel:[phone] Offic/Outpt E&M [facility] , [address], [place], [place], [address], [facility] 315 LMO Bilateral feet pain (chief complaint) RadiculopathyH allux varus (acquired), right footOther acquired hammer toe of right footTailor's bunion of both feetBunionette of left footRheumatoid arthritis, unspecified 4 Taj Deepal. [address] [facility], [address], [address], [place]. tel:[phone] Offic/Outpt E&M [facility] , [address], [place], [place], [address], [facility] 315 LMO RA. (chief complaint) Chronic lumbar radiculopathyS eropositive rheumatoid arthritisImmun osuppression due to drug therapyAge-rel ated osteoporosis without current pathological fractureHigh risk medication useEncounter for examination of blood pressure without abnormal findingsBody mass index [BMI] 23.0-23.9, adult Dec- 4 Jeanne Shirley. [address] , [address], [place], [place], [address], [place]. tel:[phone] Office/outpa tient visit [facility] , [address], [place], [place], [address], [place] [facility] 315 LMO Seborrheic dermatitis, unspecified 4 Lashae Powers. [address] , [address], [place], [address], [place]. tel:[phone] Offic/Outpt E&M Estab Low-Mod [facility] , [address], [place], [place], [address], [place] [facility] 315 LMO Rash on neck (chief complaint) Seborrheic dermatitis, unspecified 3 Lashae Powers. [address] , [address], [place], [address], [place]. tel:[phone] Office/outpa tient visit [facility] , [address], [place], [place], [address], [place] [facility] 315 LMO Bilateral feet pain (chief complaint) RadiculopathyE ncounter for exam of blood pressure w/o abnormal findingsBody mass index (BMI) 22.0-22.9, adult Sep-2 3 [facility] [address], [address], [place], [address], [place]. tel:[phone] Preven Meds E&M Estab Pt; 40-64 Yr [facility] , [address], [place], [place], [address], [place] [facility] NR HRA (chief complaint)Med icare preventive (chief complaint) Encounter for other general examinationRec urrent major depressive disorder, in full remissionSenil e purpuraSeropos itive rheumatoid arthritisAge-r elated osteoporosis without current pathological fractureOther chronic painImmunosupp ression due to drug therapyTortuou s aortaPolyneuro nadeem in diseases classified elsewhereGlauc vijay of both eyes, unspecified glaucoma typeEncounter for exam of blood pressure w/o abnormal findingsBody mass index (BMI) 21.0-21.9, adult 0 3 [place]. [address] [facility], [address], [place], [address], [place]. tel:[phone] Offic/Outpt E&M [facility] , [address], [address], [place] [address] LMO RA. (chief complaint) Seropositive rheumatoid arthritisImmun osuppression due to drug therapyAge-rel ated osteoporosis without current pathological fractureRash and nonspecific skin eruptionHigh risk medication useChronic pain of right ankleOther chronic painEncounter for exam of blood pressure w/o abnormal findingsBody mass index (BMI) 21.0-21.9, adult 3 Jeanne Shirley. [address] [facility], [facility] [address], [place], [address], [place]. tel:[phone] Offic/Outpt E&M [facility] , [address], [place], [address], [place] [address] LMO RA. (chief complaint) Seropositive rheumatoid arthritisImmun osuppression due to drug therapyAge-rel ated osteoporosis without current pathological fractureRash and nonspecific skin eruptionEncoun ter for exam of blood pressure w/o abnormal findings 3 Jeanne Shirley. [address] [facility], [address], [place], [place], [address], [place]. tel:[phone] Offic/Outpt E&M [facility] , [address], [place], [address], [place] [address] LMO RA. (chief complaint) Seropositive rheumatoid arthritisAge-r elated osteoporosis without current pathological fractureImmuno suppression due to drug therapyRheumat oid arthritis involving both feet with positive rheumatoid factorRheumato id arthritis with rheumatoid factor of left ankle and foot without organ or systems involvementHig h risk medication useEncounter for exam of blood pressure w/o abnormal findingsBody mass index (BMI) 20.0-20.9, adult 2 Jeanne Shirley. [address] [facility], [place] [address], [place], [place], [address], [place]. tel:[phone] Offic/Outpt E&M [facility] , [address], [place], [address], [place] [address] LMO Phone visit. (chief complaint) Age-related osteoporosis without current pathological fractureSeropo sitive rheumatoid arthritis 2 Khachatrian Aelita. [address] [facility], [place] [address], [place], [place], [address], [place]. tel:[phone] Offic/Outpt E&M [facility] , [address], [place], [address], [place] [address] LMO Phone visit. (chief complaint) Seropositive rheumatoid arthritisImmun osuppression due to drug therapyAge-rel ated osteoporosis without current pathological fractureNumbne ss in feet 2 Khachatrian Aelita[address] [place] [address], [place], [place], [address], [place]. tel:[phone] [facility] , [address], [place], [place], [address], [place] [address] LMO Chronic right-sided low back pain with right-sided sciaticaOther chronic painNumbness in feet 2 Khachatrian Aelita. [address] [place] [address], [place], [place], [address], [place]. tel:[phone] Offic/Outpt E&M Estab Mod-Hi [facility] , [address], [place], [place], [address], [place] [address] LMO Seropositive RA. (chief complaint) Seropositive rheumatoid arthritisAge-r elated osteoporosis without current pathological fractureHigh risk medication useImmunosuppr ession due to drug therapyRight hip painNumbness in feetChronic right-sided low back pain with right-sided sciaticaOther chronic pain 1 Khachatrian Aelita. [address] [facility], [place] [address], [place], [place], [address], [place]. tel:[phone] Offic/Outpt E&M Estab [facility] , [address], [place], [place], [address], [facility]. [facility] [address] LMO Seropositive RA. (chief complaint) Seropositive rheumatoid arthritisAge-r elated osteoporosis without current pathological fractureChroni c pain of right ankleOther chronic painEncounter for exam of blood pressure w/o abnormal findingsBody mass index (BMI) 20.0-20.9, adult Feb- 1 Khachatrian Aelita. [address] [facility], [address], [place], [place], [address], [place]. tel:[phone] Office/outpa tient visit [facility] , [facility] [address], [address], [facility] 315 LMO lesion(s) (chief complaint) Neoplasm of uncertain behavior of skin Feb- [address] , [address], [place], [address], [place]. tel:[phone] Office/outpa tient visit [facility] , [facility] [address], [place], [place], [address], C. [facility] [address] LMO Phone visit. (chief complaint) Seropositive rheumatoid arthritisAge-r elated osteoporosis without current pathological fracture 0 Khachatrian Aelita. [address] [facility], [address], [place], [place], [address], [place]. tel:[phone] Office/outpa tient visit [facility] , [address], [place], [place], [address], C. [facility] [address] LMO Phone visit. (chief complaint) Seropositive rheumatoid arthritisAge-r elated osteoporosis without current pathological fracture 0 Khachatrian Aelita. [address] [facility], [address], [place], [place], [address], [place]. tel:[phone] Offic/Outpt E&M Estab [facility] , [address], [place], [place], [address], [facility]. [facility] [address] LMO RA. (chief complaint) Seropositive rheumatoid arthritisAge-r elated osteoporosis without current pathological fractureChroni c pain of left ankleDeformity of hand, unspecified lateralitySkin abrasionEncoun ter for exam of blood pressure w/o abnormal findingsBody mass index (BMI) 21.0-21.9, adult 9 Khachatrian Aelita. [address] [facility], [address], [place], [place], [address], [place]. tel:[phone] Offic/Outpt E&M [facility] , [address], [place], [place], [address], [place] [address] 200 LMO RA. (chief complaint) Seropositive rheumatoid arthritisEncou nter for exam of blood pressure w/o abnormal findingsBody mass index (BMI) 20.0-20.9, adult 9 Kesavalu Jesús. [address], [address], [place], [address], [place]. tel:[phone] Offic/Outpt E&M [facility] , [address], [place], [address], [place] [address] [place] [address] 200 LMO RA. (chief complaint) Seropositive rheumatoid arthritisPrima ry generalized hypertrophic osteoarthrosis Chronic pain of left ankleOther chronic painEncounter for exam of blood pressure w/o abnormal findingsBody mass index (BMI) 20.0-20.9, adult 9 Kesavalu Jesús. [address], [address], [place], [place], [address], [place]. tel:[phone] Offic/Outpt E&M [facility] , [address], [place], [place], [address], [place] C. Tillman 1500 200 LMO RA. (chief complaint) Seropositive rheumatoid arthritisAge-r elated osteoporosis without current pathological fractureEncoun ter for exam of blood pressure w/o abnormal findingsBody mass index (BMI) 22.0-22.9, adult 8 Kesavalu Jesús. [address], [address], [place], [place], [address], [place]. tel:[phone] Offic/Outpt E&M Estab [facility] , [address], [place], [place], [address], [place] C. Tillman 1500 200 LMO RA. (chief complaint) Seropositive rheumatoid arthritisPrima ry generalized hypertrophic osteoarthrosis Age-related osteoporosis without current pathological fractureEncoun ter for exam of blood pressure w/o abnormal findingsBody mass index (BMI) 22.0-22.9, adult March- 8 Kesavalu Jesús. [address], [address], [place], [address], [place]. tel:[phone] Offic/Outpt E&M Estab [facility] , [address], [place], [place], [address], C. Tillman 1500 200 LMO RA. (chief complaint) Seropositive rheumatoid arthritisBody mass index (BMI) 20.0-20.9, adultEncounter for examination of blood pressure NOS 7 Kesavalu Jesús. [address] [facility], [address], [place], [address], [place]. tel:[phone] [facility] , [address], [place], [place], [address], C. Matthews 1800 LMO Encounter for other orthopedic aftercare 7 Méndez Nerman. [address] [facility], [address], [place], [address], [place]. tel:[phone] [facility] , [address], [place], [place], [address], [place] C. Arie 1800 LMO Encounter for other orthopedic aftercare 7 Jenaro Panny. [address] [facility], [address], [place], [address], [place]. tel:[phone] Offic/Outpt E&M Estab [facility] , [address], [place], [place], [address], C. Tillman 1500 200 LMO RA. (chief complaint) Seropositive rheumatoid arthritisAge-r elated osteoporosis without current pathological fractureEncoun ter for examination of blood pressure NOS 7 Aileenvalu Jesús. [address], [address], [place], [place], [address], [place]. tel:[phone] Offic/Outpt E&M Estab Mod-Hi [facility] , [address], [place], [place], [address], [place] C. Tillman 1500 200 LMO RA. (chief complaint) Seropositive rheumatoid arthritisBody mass index (BMI) 21.0-21.9, adultEncounter for examination of blood pressure NOS 7 Aileenvalu Jesús. [address], [address], [place], [place], [address], [place]. tel:[phone] Offic/Outpt E&M Estab Low-Mod [facility] , [address], [place], [place], [address], [place] C. [place] 315 LMO Follow UP (chief complaint) Posterior tibial tendinitis of left legPain of left heel 6 [place] Vega. [address] [facility], [address], [place], [address], [place]. tel:[phone] [facility] , [facility] 219362, [place], [place], [address], [place] CBruno Sargent 1800 LMO Pain in left shoulder 6 Alea Mayorgany. [address] [facility] [address], [place], [address], [place]. tel:[phone] [facility] , [facility] 248995, [place], [place], [address], [place] Ubaldo Sargent 1800 LMO Chronic left shoulder pain 6 Wisam Sandhu. [address] [facility] [address], [place], [address], [place]. tel:[phone] [facility] , [facility] 349843, [place], [place], [address], [place] Ubaldo Sargent 1800 LMO Chronic left shoulder pain 6 Andrea Bunch. [address] [facility] [address], [place], [address], [place]. tel:[phone] [facility] , [facility] 386449, [place], [place], [address], [place] CBruno Sargent 1800 LMO Chronic left shoulder pain Aug- 6 [facility]. [address], [address], [place]. tel:[phone] [facility] , [facility] 598123, [place], [place], [address], [place] CBruno Sargent 1800 LMO Chronic left shoulder pain Aug- 6 [facility]. [address] [place] [address], [address], [place]. tel:[phone] Offic/Outpt E&M Estab Mod-Hi [facility] , [facility] 218375, [place], [place], [address], [place] CBruno Dukes 1500 200 LMO RA. (chief complaint) Seropositive rheumatoid arthritisSecon farhan osteoarthritis Body mass index (BMI) 21.0-21.9, adultEncounter for exam of blood pressure w/o abnormal findings Sep-3 - 6 Kesavalveronica Espinosa. [address] [facility], [address], [place], [address], [place]. tel:[phone] [facility] , [facility] 452524, [place], [place], [address], [place] CBruno Sargent 1800 LMO Chronic left shoulder painOther chronic pain Jul- 6 Bennie Bolanos. [address], [address], [place]. tel:[phone] [facility] , [facility] 075513, [place], [place], [address], [place] CBruno Sargent 1800 LMO Pain in left shoulder 6 Lin Chaudhary. [address], [address], [place]. tel:[phone] [facility] , [facility] 574892, [place], [place], [address], [place] Ubaldo Sargent 1800 LMO Pain in left shoulder 6 [facility] Alivia. [address] [place], [address], [place]. tel:[phone] [facility] , [address], [place], [place], [address], [facility]. [place] 1800 LMO Pain in left shoulder 6 Alea Jain. [address] [facility], [address], [place], [address], [place]. tel:[phone] Offic/Outpt E&M Estab [facility] , [address], [place], [place], [address], [place] C. Tillman 1500 200 LMO Rheumatoid Arthritis (chief complaint) Rheumatoid arthritis involving multiple sites with positive rheumatoid factorBody mass index (BMI) 24.0-24.9, adult 6 Kesavalu Jesús. [address] [facility], [address], [place], [address], [place]. tel:[phone] Offic/Outpt E&M Estab [facility] , [address], [place], [place], [address], [place] C. Tillman 1500 200 LMO Rheumatoid Arthritis (chief complaint) Rheumatoid arthritis involving multiple sites with positive rheumatoid factor 5 Kesavalu Jesús. [address] [facility], [facility] [address], [place], [address], [place]. tel:[phone] Offic/Outpt E&M Estab Low-Mod [facility] , [facility] 932661, [place], [place], [address], [place] C. [place] 201 LMO PCP Follow Up of RA related foot/ankle deformities (chief complaint) Pain, joint, ankle and foot, unspecified lateralityAcqu ired valgus deformity of both anklesValgus deformity, not elsewhere classified, right ankle 5 [place] Vega. [address] [facility], [address], [place], [place], [address], [place]. tel:[phone] Offic/Outpt E&M Estab [facility] , [address], [place], [place], [address], [place] C. Tillman 1500 200 LMO Rheumatoid Arthritis (chief complaint) Rheumatoid arthritis, unspecifiedBod y mass index (BMI) 22.0-22.9, adultEncounter for exam of blood pressure w/o abnormal findings 5 Kesavalu Jesús. [address], [place], [place], [address], [place]. tel:[phone] Offic/Outpt E&M Estab [facility] , [address], [place], [place], [address], [place] C. Tillman 1500 200 LMO Rheumatoid Arthritis (chief complaint) Rheumatoid arthritis 5 Kesavalu Jesús. [address], [place], [place], [address], [place]. tel:[phone] Offic/Outpt E&M Estab [facility] , [address], [place], [place], [address], [place] C. Tillman 1500 200 LMO Rheumatoid Arthritis (chief complaint) Rheumatoid arthritis 5 Kesavalu Jesús. [address], [place], [place], [address], [place]. tel:[phone] Offic/Outpt E&M Estab [facility] , [address], [place], [place], [address], [place] C. [place] 201 LMO PCP Surgery Evaluation (chief complaint) Disorder of bone and cartilage, unspecified 5 [place] Vega. [address] [facility], [address], [place], [address], [place]. tel:[phone] Offic/Outpt E&M Estab [facility] , [address], [place], [place], [address], [place] C. Tillman 1500 200 LMO Rheumatoid Arthritis (chief complaint) Rheumatoid arthritisSyste enedina lupus erythematosus 5 Kesavalu Jesús. [address], [address], [place], [place], [address], [place]. tel:[phone] Offic/Outpt E&M Estab [facility] , [address], [place], [place], [address], [place] C. Tillman 1500 200 LMO Rheumatoid Arthritis (chief complaint) Rheumatoid arthritis 5 Kesavalu Jesús. [address], [place], [place], [address], [place]. tel:[phone] Offic/Outpt E&M Estab Low-Mod [facility] , [address], [place], [place], [address], [place] C. [place] 201 LMO PCP Follow Up of (chief complaint) Rheumatoid myopathy with rheumatoid arthritis of left ankle and footSymptomati c inflammatory myopathy in diseases classified elsewherePeron eal tendon tear 5 [place] Vega. [address] [facility], [address], [place], [place], [address], [place]. tel:[phone] Offic/Outpt E&M Estab [facility] , [address], [place], [place], [address], [place] C. Tillman 1500 200 LMO Rheumatoid Arthritis (chief complaint) Rheumatoid arthritisSyste enedina lupus erythematosus 5 Kesavalu Jesús. [address], [address], [place], [place], [address], [place]. tel:[phone] [facility] , [address], [place], [place], [address], [place] C. Tillman 1500 200 LMO Rheumatoid Arthritis 5 Kesavalu Jesús. [address], [address], [place], [place], [address], [place]. tel:[phone] Offic/Outpt E&M Estab Mod-Hi [facility] , [address], [place], [place], [address], [place] C. Tillman 1500 200 LMO Rheumatoid Arthritis (chief complaint) Rheumatoid arthritisSyste enedina lupus erythematosus 5 Kesavalu Jesús. [address], [address], [place], [place], [address], [place]. tel:[phone] Office Cons [facility] , [address], [place], [place], [address], [place] C. [place] 201 LMO PCP Feet Pain (Ankles) (chief complaint) Veronica 5 [place] Vega. [address] [facility], [address], [place], [place], [address], [place]. tel:[phone] Offic/Outpt E&M Estab [facility] , [address], [place], [place], [address], [place] C. Tillman 1500 200 LMO Rheumatoid Arthritis (chief complaint) Rheumatoid arthritisSyste enedina lupus erythematosusD isorder of bone and cartilage, unspecifiedChr onic High risk medication useChronic steroid use 5 Kesavalu Jesús. [address], [address], [place], [place], [address], [place]. tel:[phone] Offic/Outpt E&M [facility] , [address], [place], [place], [address], [place] C. Tillman 1500 200 LMO Rheumatoid Arthritis (chief complaint) Systemic lupus erythematosusR heumatoid arthritisChron ic High risk medication use 4 Kesavalu Jesús. [address], [address], [place], [place], [address], [place]. tel:[phone] Offic/Outpt E&M [facility] , [address], [place], [place], [address], [place] C. Tillman 1500 200 LMO Rheumatoid Arthritis (chief complaint) No Information 4 Kesavalu Jesús. [address], [address], [place], [place], [address], [place]. tel:[phone] Offic/Outpt E&M [facility] , [address], [place], [place], [address], [place] C. Tillman 1500 200 LMO Rheumatoid Arthritis (chief complaint) Body Mass Index less than 19, adult 4 Kesavalu Jesús. [address], [address], [place], [place], [address], [place]. tel:[phone] Offic/Outpt E&M Estab [facility] , [address], [place], [place], [address], [place] C. Tillman 1500 200 LMO Rheumatoid Arthritis (chief complaint) Body Mass Index between 19-24, adult 4 Kesavalu Jesús. [address], [address], [place], [place], [address], [place]. tel:[phone] Offic/Outpt E&M Estab [facility] , [address], [place], [place], [address], [place] C. Tillman 1500 200 LMO Rheumatoid Arthritis (chief complaint) Therapeutic Drug MonitoringLONG -TERM (CURRENT) USE OF STEROIDSRheuma toid ArthritisOsteo arthrosis, unspecified whether generalized or localized, involving unspecified siteDisorder of bone and cartilage, unspecifiedPer ann marie history of other musculoskeleta l disorders 3 Aileenvalu Jesús. [address], [address], [place], [place], [address], [place]. tel:[phone] Offic/Outpt E&M Estab [facility] , [address], [place], [place], [address], [place] C. Tillman 1500 200 LMO Rheumatoid Arthritis (chief complaint) Other specified examination 3 Kevalu Jesús. [address], [address], [place], [place], [address], [place]. tel:[phone] Offic/Outpt E&M Estab [facility] , [address], [place], [place], [address], [place] C. Tillman 1500 200 LMO Rheumatoid Arthritis (chief complaint) No Information 3 Kevalu Jesús. [address], [address], [place], [place], [address], [place]. tel:[phone] Offic/Outpt E&M Estab [facility] 25 Min [facility] , [address], [place], [place], [address], [place] C. Tillman 1500 200 LMO Rheumatoid Arthritis (chief complaint) No Information 3 Iain Espinosa. [address], [place], [place], [address], [place]. tel:[phone] Offic/Outpt E&M Estab Mod-Hi 25 Min [facility] , [address], [place], [place], [address], [place] C. Tillman 1500 200 LMO Rheumatoid Arthritis (chief complaint) Rheumatoid arthritis 2 Mary Ann Patel. [address] [facility], [address], [place], [place], [address], [place]. tel:[phone] Offic/Outpt E&M Estab Mod-Hi 25 Min [facility] , [address], [place], [place], [address], [place] C. Tillman 1500 200 LMO Rheumatoid Arthritis (chief complaint) Rheumatoid arthritisOsteo arthrosis, localized, not specified whether primary or secondary, involving lower leg 2 Iain Espinosa. [address], [address], [place], [place], [address], [place]. tel:[phone] Offic/Outpt E&M Estab Mod-Hi 25 Min [facility] , [address], [place], [place], [address], [place] C. Tillman 200 LMO Rheumatoid Arthritis (chief complaint) No Information 2 Iain Espinosa. [address], [address], [place], [place], [address], [place]. tel:[phone] Offic/Outpt E&M Estab Mod-Hi 25 Min [facility] , [address], [place], [place], [address], [place] C. Tillman 200 LMO Rheumatoid Arthritis (chief complaint) Routine Medical ExamRheumatoid arthritisLupus (systemic lupus erythematosus) Therapeutic Drug MonitoringLONG -TERM (CURRENT) USE OF STEROIDS 2 Iain Espinosa. [address], [address], [place], [place], [address], [place]. tel:[phone] Offic/Outpt E&M Estab Mod-Hi 25 Min [facility] , [address], [place], [place], [address], [place] C. Tillman 200 LMO No Information 2 Kesavalu Jesús. [address], [address], [place], [place], [address], [place]. tel:[phone] Offic/Outpt E&M Estab Mod-Hi 25 Min [facility] , [address], [place], [place], [address], [place] C. Tillman 1500 200 LMO No Information 1 Kesavalu Jesús. [address], [address], [place], [place], [address], [place]. tel:[phone] Offic/Outpt E&M Estab Mod-Hi 25 Min [facility] , [address], [place], [place], [address], [place] C. Tillman 200 LMO No Information 1 Kesavalu Jesús. [address], [address], [place], [place], [address], [place]. tel:[phone] Offic/Outpt E&M Estab Mod-Hi 40 Min [facility] , [address], [place], [place], [address], [place] C. Tillman 200 LMO No Information 1 Kesavalu Jesús. [address], [address], [place], [place], [address], [place]. tel:[phone] Offic/Outpt E&M Estab Mod-Hi 25 Min [facility] , [address], [place], [place], [address], [place] C. Tillman 200 LMO No Information 1 Kesavalu Jesús. [address], [address], [place], [place], [address], [place]. tel:[phone] Offic/Outpt E&M Estab Mod-Hi 25 Min [facility] , [address], [place], [place], [address], [place] C. Tillman 200 LMO No Information 1 Kesavalu Jesús. [address], [address], [place], [place], [address], [place]. tel:[phone] Offic/Outpt E&M Estab Mod-Hi 25 Min [facility] , [address], [place], [place], [address], C. Tillman 200 LMO No Information 1 Kesavalu Jesús. [address], [address], [place], [place], [address], [place]. tel:[phone] Offic/Outpt E&M Estab Mod-Hi 25 Min [facility] , [address], [place], [place], [address], [place] C. Tillman 200 No Information 0- 0 Kesavalu Jesús. [address], [address], [place], [place], [address], [place]. tel:[phone] Offic/Outpt E&M Estab Mod-Hi 25 Min [facility] , [address], [place], [place], [address], C. Tillman 200 No Information 0 Kesavalu Jesús. [address], [address], [place], [place], [address], [place]. tel:[phone] Family History Family Member Type Diagnosis Age At Onset Mother Problem (finding) Rheumatoid arthritis Sister Problem (finding) Rheumatoid arthritis Problem (finding) Family history of rheum atoid arthritis Problem (finding) Family history of Lupus erythematosus Mother Problem (finding) Lupus erythematosus Sister Problem (finding) Lupus erythematosus Immunizations Vaccine Date Status Comments Zoster administered Source: Other R egistry Flu quadrivalent injectable MDCK pfree administered Source: Other Regist ry Tdap administered Source: Other R egistry Flu quadrivalent injectable pfree adminis tered Source: Other Registry Flu quadrivalent injectable pfree adminis tered Source: Other Registry Payers Payer name Insurance type Covered libertarian ID Authoriza tion(s) No Information Social History Type Description Quantity Date Captured Comments Alcohol Use Details Unknown Caffeine Use Details Unknown Tobacco Use Status No Information Smoking Status No Information Sex Female Gender Identity Female Chief Complaint And Reason For Visit No Information Reason For Referral Reason For Referral No Information Plan Of Treatment Date Type Action Status Referral Ordered: Case Management Referral (related to Arterial ischemia) ordered Referral Ordered: Vascular Surgery (related to Arterial ischemia) ordered Referral Ordered: Hyperbaric Oxygen Therapy (related to Arterial ischemia) ordered Referral Ordered: Referrals: Vascular Surgery ordered Referral Ordered: Referrals: Hyperbaric Oxygen Therapy ordered Referral Ordered: Physical Therapy (related to Rheumatoid arthritis, unspecified) ordered Referral Referred To: Wheelchair standard w/ leg r Ordered: Referrals: Wheelchair standard w/ leg r ordered Referral Referred To: Pneumati walking boot prefab Ordered: Referrals: Pneumati walking boot prefab ordered Referral Ordered: Deepal Taj DPM -Podiatry (related to Hallux varus (acquired), right foot) ordered Referral Referred To: Deepal Taj DPM [address] [facility]
[address] [place], [place], [id number] Ordered: Referrals: Podiatry. Deepal Taj DPM ordered Referral Ordered: Physical Therapy (related to Chronic lumbar radiculopathy) ordered Referral Ordered: Dermatology (related to Rash and nonspecific skin eruption) ordered Referral Ordered: Podiatry (related to Chronic pain of right ankle) ordered Referral Ordered: Podiatry (related to Rheumatoid arthritis involving both feet with positive rheumatoid factor) ordered Referral Ordered: Physical Therapy (related to Chronic right-sided low back pain with right-sided sciatica) ordered Referral Ordered: Neurology (related to Numbness in feet) ordered Referral Referred To: Physical Therapy Ordered: Referrals: Physical Therapy. Evaluate and treat ordered Referral Ordered: Referrals: Neurology. Evaluate and treat ordered Referral Ordered: Neurology (related to Numbness in feet) ordered Referral Ordered: Physical Therapy (related to Chronic right-sided low back pain with right-sided sciatica) ordered Referral Referred To: Physical Therapy Ordered: Referrals: Physical Therapy ordered Referral Ordered: Referrals: Neurology ordered Referral Ordered: Otolaryngology (related to Neoplasm of uncertain behavior of skin) ordered Referral Ordered: Referrals: Otolaryngology. Consult ordered Referral Ordered: Podiatry (related to Chronic pain of left ankle) ordered Referral Ordered: Hand surgery (related to Deformity of hand, unspecified laterality) ordered Referral Ordered: Dermatology (related to Skin abrasion) ordered Referral Ordered: Referrals: Hand surgery. Evaluate and treat ordered Referral Ordered: Referrals: Dermatology ordered Referral Ordered: Referrals: Podiatry ordered Referral Ordered: Referrals: rituximab infusion ordered Referral Ordered: physical therapy (related to Posterior tibial tendinitis of left leg) ordered Referral Ordered: Referrals: physical therapy ordered Referral Ordered: Referrals: Dr. keene soil conservation technician ordered Referral Ordered: Referrals: Dermatology. Evaluate and treat ordered Referral Ordered: Dual-Energy X-Ray Absorptiometry (DEXA) Hips, Pelvis, Spine ordered Referral Ordered: Rad Exam Spine Cerv; Complt W/Obliq ordered Referral Ordered: Referrals: Rituxan infusion due March 2016. Evaluate and treat ordered Referral Ordered: geriatric nurse practitioner consult (related to Pain, joint, ankle and foot, unspecified laterality) ordered Referral Ordered: Referrals: geriatric nurse practitioner consult ordered Referral Ordered: Referrals: Rituxan ordered Referral Ordered: Referrals: rasuvo inj ordered Referral Referred To: AFO L ankle Ordered: Referrals: AFO L ankle ordered Referral Ordered: Tahir Hendricks DPM DPSergey (related to Rheumatoid arthritis) ordered Referral Referred To: Tahir Hendricks DPM DPM [address] [facility]
[address] [place] [address], [phone] Ordered: Referrals: Podiatry. Tahir Hendricks DPM DPM ordered Referral Ordered: MRI Joint Of Lwr Extrem W/O Dye Left ankle ordered Referral Ordered: Rad Exam Ft; Complt Mini 3 Views Bilateral foot ordered Appointment ASAD CABRALES BOOKED Future Order: Lab Order CBC (INC LUDES DIFF/PLT) ([id number]), Sent on: Sent Future Order: Lab Order COMPREHE NSIVE METABOLIC PANEL ([id number]), Sent on: Sent Future Order: Lab Order C-REACTI VE PROTEIN ([id number]), Sent on: Sent Future Order: Lab Order SED RATE BY MODIFIED WESTERGREN (809), Sent on: Sent Future Order: Lab Order CBC (INC LUDES DIFF/PLT) ([id number]), Ordered on: Ordered Future Order: Lab Order COMPREHE NSIVE METABOLIC PANEL ([id number]), Ordered on: Ordered Future Order: Lab Order C-REACTI VE PROTEIN ([id number]), Ordered on: Ordered Future Order: Lab Order SED RATE BY MODIFIED WESTERGREN (809), Ordered on: Ordered Future Order: Radiology Order XR Foot Minimum 3 Views, Weight Bearing ([id number]), Sent on: Sent Future Order: Radiology Order XR Foot Minimum 3 Views, Weight Bearing ([id number]), Ordered on: Ordered Future Order: Lab Order CBC (INC LUDES DIFF/PLT) ([id number]), Sent on: Sent Future Order: Lab Order COMPREHE NSIVE METABOLIC PANEL ([id number]), Sent on: Sent Future Order: Lab Order C-REACTI VE PROTEIN (4420), Sent on: Sent Future Order: Lab Order SED RATE BY MODIFIED WESTERGREN (809), Sent on: Sent Future Order: Radiology Order XR Foot And Ankle 3 Views Each, Weight Bearing ([id number]), Sent on: Sent Future Order: Lab Order CBC (INC LUDES DIFF/PLT) (6399), Ordered on: Ordered Future Order: Lab Order COMPREHE NSIVE METABOLIC PANEL ([id number]), Ordered on: Ordered Future Order: Lab Order C-REACTI VE PROTEIN (4420), Ordered on: Ordered Future Order: Lab Order SED RATE BY MODIFIED WESTERGREN (809), Ordered on: Ordered Future Order: Lab Order CBC (INC LUDES DIFF/PLT) ([id number]), Ordered on: Ordered Future Order: Lab Order COMPREHE NSIVE METABOLIC PANEL ([id number]), Ordered on: Ordered Future Order: Lab Order C-REACTI VE PROTEIN (4420), Ordered on: Ordered Future Order: Lab Order SED RATE BY MODIFIED WESTERGREN (809), Ordered on: Ordered Future Order: Radiology Order XR Hip Bilateral 2 Views (W or WO Pelvis) ([id number]), Sent on: Sent Future Order: Lab Order CBC (INC LUDES DIFF/PLT) (6399), Sent on: Sent Future Order: Lab Order COMPREHE NSIVE METABOLIC PANEL ([id number]), Sent on: Sent Future Order: Lab Order C-REACTI VE PROTEIN (4420), Sent on: Sent Future Order: Lab Order SED RATE BY MODIFIED WESTERGREN (809), Sent on: Sent Future Order: Radiology Order XR Ankle 2 Views ([id number]), Sent on: Sent Future Order: Radiology Order DX DEXA Hip and Spine ([id number]), Sent on: Sent Future Order: Radiology Order DX DEXA Hip and Spine ([id number]), Sent on: Sent Future Order: Lab Order CBC (INC LUDES DIFF/PLT) (6399), Ordered on: Ordered Future Order: Lab Order C-REACTI VE PROTEIN (4420), Ordered on: Ordered Future Order: Lab Order COMPREHE NSIVE METABOLIC PANEL ([id number]), Ordered on: Ordered Future Order: Lab Order SED RATE BY MODIFIED WESTERGREN (809), Ordered on: Ordered Future Order: Lab Order COMPLEME NT COMPONENT C3C (351), Sent on: Sent Future Order: Lab Order COMPLEME NT COMPONENT C4C (353), Sent on: Sent Future Order: Lab Order COMPREHE NSIVE METABOLIC PANEL ([id number]), Sent on: Sent Future Order: Lab Order RHEUMATO ID FACTOR (4418), Sent on: Sent Future Order: Lab Order CBC (INC LUDES DIFF/PLT) (6399), Sent on: Sent Future Order: Lab Order C-REACTI VE PROTEIN (4420), Sent on: Sent Future Order: Lab Order DNA (DS) ANTIBODY (255), Sent on: Sent Future Order: Lab Order SED RATE BY MODIFIED WESTERGREN (809), Sent on: Sent Future Order: Lab Order COMPLEME NT COMPONENT C3C (351), Ordered on: Ordered Future Order: Lab Order COMPLEME NT COMPONENT C4C (353), Ordered on: Ordered Future Order: Lab Order COMPREHE NSIVE METABOLIC PANEL ([id number]), Ordered on: Ordered Future Order: Lab Order RHEUMATO ID FACTOR (4418), Ordered on: Ordered Future Order: Lab Order CBC (INC LUDES DIFF/PLT) (6399), Ordered on: Ordered Future Order: Lab Order C-REACTI VE PROTEIN (4420), Ordered on: Ordered Future Order: Lab Order DNA (DS) ANTIBODY (255), Ordered on: Ordered Future Order: Lab Order SED RATE BY MODIFIED WESTERGREN (809), Ordered on: Ordered Future Order: Lab Order C-REACTI VE PROTEIN (4420), Ordered on: Ordered Future Order: Lab Order DNA (DS) ANTIBODY (255), Ordered on: Ordered Future Order: Lab Order COMPREHE NSIVE METABOLIC PANEL (97313), Ordered on: Ordered Future Order: Lab Order COMPLEME NT COMPONENT C3C (351), Ordered on: Ordered Future Order: Lab Order SED RATE BY MODIFIED WESTERGREN (809), Ordered on: Ordered Future Order: Lab Order RHEUMATO ID FACTOR (4418), Ordered on: Ordered Future Order: Lab Order CBC (INC LUDES DIFF/PLT) (6399), Ordered on: Ordered Future Order: Lab Order COMPLEME NT COMPONENT C4C (353), Ordered on: Ordered Future Order: Lab Order DNA (DS) ANTIBODY (255), Ordered on: Ordered Future Order: Lab Order COMPREHE NSIVE METABOLIC PANEL (61391), Ordered on: Ordered Future Order: Lab Order SED RATE BY MODIFIED WESTERGREN (809), Ordered on: Ordered Future Order: Lab Order C-REACTI VE PROTEIN (4420), Ordered on: Ordered Future Order: Lab Order CBC (INC LUDES DIFF/PLT) (6399), Ordered on: Ordered Future Order: Lab Order COMPLEME NT COMPONENT C3C (351), Ordered on: Ordered Future Order: Lab Order RHEUMATO ID FACTOR (4418), Ordered on: Ordered Future Order: Lab Order COMPLEME NT COMPONENT C4C (353), Ordered on: Ordered Future Order: Lab Order DNA (DS) ANTIBODY (255), Sent on: Sent Future Order: Lab Order COMPREHE NSIVE METABOLIC PANEL (06520), Sent on: Sent Future Order: Lab Order SED RATE BY MODIFIED WESTERGREN (809), Sent on: Sent Future Order: Lab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 She is requesting to see hand surgeon. her referral to podiatry has . She is due for her next Rituxan in 10/28. She denies any infections, fevers, rashes, no chest pain, cough, diarrhea, or nausea. Labs reviewed from 09/17/19: CBC/CMP nl, ESR/CRP nl, RF [id number]. overall doing well. Still has bilateral ankle pain with mild to moderate antalgic gait. has not seen podiatry. and we will refer. continue methotrexate 8 tablets once weekly. status post rituximab in April 2018. next due in October 2018. she has bilateral hand interdigit skin mottling due to moisture due to deformities of the fingers. to avoid infection, and to help rheumatoid arthritis deformities, will order DME Hand arthrosis with fingers separator. RTC [address] Angel.January 2019: for rituximab infused in 2015, she got a bili of $2000 and was sent to collection agency. she is due for reinfusion. reinfuse at 500 mg per infusion. she has left ankle pain with feeling of giving way for the last 2 months. She has not seen the surgeon who has operated on her left ankle in a while. We will re- refer.September 2018: status post rituximab infusion July 2018 by [facility] [place]. Negative contraindication to NSAID use. Meloxicam when necessary pain. next Rituximab infusion due in January 2019. On methotrexate. Continue blood testing every 3 monthly.March 2018: s/p Rituxan 1000 mg x 2, Sep 2015, 07/2016, 01/2017, Sep 2017(09/19 and 10/02; [facility]). Improved significantly. s/p fracture of R patella. [place] very rarely. . on MTX 8 q wk PO. due for rituximab now. will infuse 500 mg low dose as she is doing well and to decrease SE. Overall improved on this medication. side effects re-discussed.juana Phone visit. Visit type: tele health visit - phone ([employer] Pand[employer]) with patient consentPatient location: homeProvider location: officeOn the call with me: patientCall start and stop time: 3:55 pm to 4:22 pmTotal time with patient: 27 minutesPast medical records and recent labs were reviewed.Past social and family history was reviewed.Current medications and side-effects reviewed today. No medication side effects.I called to discuss her DEXA scan resultsLS -2.3, and LFN i -1.8 (decrease LS from -1.6, and LFN -1.6)FRAX score is 9.9% and 1.3%She has had hx of shoulder and knee fracture a few years ago, ? fragility fracturesShe was Boniva from 01/2012- and stopped in 08/2020. She has had almost 8 years of treatment on this medication . 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 She was recommended to have cortisone injections which she deferred, offered gabapentin 100 mg at bedtime.her infusion from April was cancelled, she needed a approval from Medicare Part D. Phone visit. Visit type: tele health visit - phone ([employer] Pandemic) with patient consentPatient location: [facility] location: homeOn the call with me: patientCall start and stop time: 12:27 pm to 12:45 pm Total time with patient: 18 minutesPast medical records and recent labs were reviewed.Past social and family history was reviewed.Current medications and side-effects reviewed today. No medication side effects.I reviewed her labs. No medication side effects.Her last Rituxan infusion was Aug 2021, and she was suppose to have infusion in February 2022.She reports R foot and ankle pain. Her infusion lasts about 6 months, and she starts to experience increased joint pain, mid January or end of January.SHe is due for her DEXA scan and she has not completed her hip xraysShe had seen Neurologist, and had MRI of the hips/shoulders, and feet, Dr. Renteria. She was referred by me last year for her numbness in her feet. Seropositive RA. RA. RF 195, C CP > 250. double strand DNA, high avidity double strand DNA, hepatitis panel, myositis panel, RP 3 negative. RF marker has normalized since being on Rituxan infusion. Previous treatments: remicade via dr. Herminio with anaphylaxis 2004. on enbrel [id number] with inadequate response. on chronic methotrexate 1999- to now 20 MG Q WEEKLY, including trial of Rasuvo/methotrexate SQ injections. with inadequate response. on Arava from 2006 to 2008 with inadequate response. on Orencia from 2011 to 2013 with inadequate response. on xeljanz 2015 for 7 months with inadequate response. on rituximab in June 2015 with good response. (on chronic prednisone on an average dose of 5-10 mg for several years in addition to biological and methotrexate). Current Tx: Rituxan infusions 500 mg Q 6 months + MTX 8 tabs weekly, + FA, in remission. s/p L ankle surgery Dec 2016, right hand MCP surgery/replacement on 05/2020 and left hand MCP surgery 10/2020status post left humerus fracture in March 2016. History of chronic prednisone usage. Osteoporosis: DEXA August 2016 showed -1.9, -1.8. R patella fracture and left shoulder. (? fragility fracture). on boniva for many years, DEXA scan improved (left hip, increased from -1.8 to -1.6, and LS increased from -1.9 to -1.6) on 12/2019, Boniva on hold since 09/01/2020. Neck X-Ray ok08/2021: Patient s/p Rituxan infusion on Labs reviewed and medication reviewed. She missed her labs from 10/2020-07/2021. She stopped the MTX in January-February 2021 because she longer received any refills. Her last infusion was in January 2021. It is unclear why the infusion was delayed since I signed her order in 04/20. The infusion cancelled her infusion because they did not have the medication. She is suppose to schedule this month. I explained to her I did not stop the mTX, she needs to do her labs every 90 days. Her only complains is right 2 nd toe pain radiating up the right groin and she is also experiencing low back pain. She has chronic paresthesia of the right foot and left foot sometimes. 02/2021: Phone visits in 2019, see encounters. Labs reviewed from 10/2020, last truxima was 01/12/2021. She has been off Bonvia since 09/01/2020. No new falls or fractures. 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 She is doing much better, no problems post surgery. She has limited ROM at the MCPs. Labs reviewed, Meds reviewed. 10/2019: Patient is overall stable. She does not any complaints. Her arthritis is stable. No Am stiffness, and no joint swelling. She reports taking Boniva for many years, at least 10 years. her DEXA scan was 08/2016 which showed osteopenia, she is not sure of having drug holiday. 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 She is requesting to see hand surgeon. her referral to podiatry has . She is due for her next Rituxan in 10/28. She denies any infections, fevers, rashes, no chest pain, cough, diarrhea, or nausea. Labs reviewed from 09/17/19: CBC/CMP nl, ESR/CRP nl, RF 15August 2018. overall doing well. Still has bilateral ankle pain with mild to moderate antalgic gait. has not seen podiatry. and we will refer. continue methotrexate 8 tablets once weekly. status post rituximab in April 2018. next due in October 2018. she has bilateral hand interdigit skin mottling due to moisture due to deformities of the fingers. to avoid infection, and to help rheumatoid arthritis deformities, will order DME Hand arthrosis with fingers separator. RTC [address] Angel.January 2019: for rituximab infused in 2015, she got a bili of $2000 and was sent to collection agency. she is due for reinfusion. reinfuse at 500 mg per infusion. she has left ankle pain with feeling of giving way for the last 2 months. She has not seen the surgeon who has operated on her left ankle in a while. We will re- refer.September 2018: status post rituximab infusion July 2018 by [facility] [place]. Negative contraindication to NSAID use. Meloxicam when necessary pain. next Rituximab infusion due in January 2019. On methotrexate. Continue blood testing every 3 monthly.March 2018: s/p Rituxan 1000 mg x 2, Sep 2015, 07/2016, 01/2017, Sep 2017(09/19 and 10/02; [facility]). Improved significantly. s/p fracture of R patella. [place] very rarely. . on MTX 8 q wk PO. due for rituximab now. will infuse 500 mg low dose as she is doing well and to decrease SE. Overall improved on this medication. side effects re-discussed.juana Seropositive RA. RA. RF 195, C CP > 250. double strand DNA, high avidity double strand DNA, hepatitis panel, myositis panel, RP 3 negative. RF marker has normalized since being on Rituxan infusion. Previous treatments: remicade via dr. Durham with anaphylaxis 2004. on enbrel [id number] with inadequate response. on chronic methotrexate 1999- to now 20 MG Q WEEKLY, including trial of Rasuvo/methotrexate SQ injections. with inadequate response. on Arava from 2006 to 2008 with inadequate response. on Orencia from 2011 to 2013 with inadequate response. on xeljanz 2014 for 7 months with inadequate response. on rituximab in June 2015 with good response. (on chronic prednisone on an average dose of 5-10 mg for several years in addition to biological and methotrexate). Current Tx: Rituxan infusions 500 mg Q 6 months + MTX 8 tabs weekly, + FA, in remission. s/p L ankle surgery Dec 2016, right hand MCP surgery/replacement on 05/2020 and left hand MCP surgery 10/2020status post left humerus fracture in March 2016. History of chronic prednisone usage. Osteoporosis: DEXA August 2016 showed -1.9, -1.8. R patella fracture and left shoulder. (? fragility fracture). on boniva for many years, DEXA scan improved (left hip, increased from -1.8 to -1.6, and LS increased from -1.9 to -1.6) on 12/2019, Boniva on hold since 09/01/2020. Neck X-Ray : Phone visits in 2019, see encounters. Labs reviewed from 10/2020, last truxima was 01/12/2021. She has been on Bonvia since 09/01/2020. No new falls or fractures. 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 She is doing much better, no problems post surgery. She has limited ROM at the MCPs. Labs reviewed, Meds reviewed. 10/2019: Patient is overall stable. She does not any complaints. Her arthritis is stable. No Am stiffness, and no joint swelling. She reports taking Boniva for many years, at least 10 years. her DEXA scan was 08/2016 which showed osteopenia, she is not sure of having drug holiday. 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 She is requesting to see hand surgeon. her referral to podiatry has . She is due for her next Rituxan in 10/28. She denies any infections, fevers, rashes, no chest pain, cough, diarrhea, or nausea. Labs reviewed from 09/17/19: CBC/CMP nl, ESR/CRP nl, RF 15Augus2018. overall doing well. Still has bilateral ankle pain with mild to moderate antalgic gait. has not seen podiatry. and we will refer. continue methotrexate 8 tablets once weekly. status post rituximab in April 2018. next due in October 2018. she has bilateral hand interdigit skin mottling due to moisture due to deformities of the fingers. to avoid infection, and to help rheumatoid arthritis deformities, will order DME Hand arthrosis with fingers separator. RTC [address] Angel.January 2019: for rituximab infused in 2015, she got a bili of $2000 and was sent to collection agency. she is due for reinfusion. reinfuse at 500 mg per infusion. she has left ankle pain with feeling of giving way for the last 2 months. She has not seen the surgeon who has operated on her left ankle in a while. We will re- refer.September 2018: status post rituximab infusion July 2018 by [facility] [place]. Negative contraindication to NSAID use. Meloxicam when necessary pain. next Rituximab infusion due in January 2019. On methotrexate. Continue blood testing every 3 monthly.March 2018: s/p Rituxan 1000 mg x 2, Sep 2015, 07/2016, 01/2017, Sep 2017(09/19 and 10/02; [facility]). Improved significantly. s/p fracture of R patella. [place] very rarely. . on MTX 8 q wk PO. due for rituximab now. will infuse 500 mg low dose as she is doing well and to decrease SE. Overall improved on this medication. side effects re-discussed.nor lesion(s) Area(s) of jeramy rn include the upper palate. There are no associated symptoms. Additional information: language line damián Gann #[id number]. Phone visit. Visit type: tele health visit - phone ([facility] ) with patient consentPatient location: [facility]Mult[facility] location: homeOn the call with me: patientCall start and stop time: 9:45 am to 10:00 amTotal time with patient: 15 minutesPast medical records and recent labs were reviewed.Past social and family history was reviewed.Current medications and side-effects reviewed today. No medication side effects.I reviewed her labs from 07/2020, which was all normal. She had her 2nd infusion on 08/30/2020. She denies any AE from the medication. NO fevers, no infusion reactions, no rashes, and no chest pain. She has some bone pain, mainly in her feet, but she reports this is very mild.She was instructed to hold the boniva and repeat DEXA scan in 10/2019, she never stopped the medication, and the DEXA scan was not performed. She was prescribed the medication dating back in 2011, but patient reports it has been at least 5 years since she has been taking it. So it hard to know how long she has used it religiously. In the last 5 years, she Phone visit. Visit type: tele health visit - phone ([facility] ) with patient consentPatient location: [facility] location: homeOn the call with me: patientCall start and stop time: 10:00 am to 10:15 am, we disconnected, patient was later contacted by phone, telephone, and further instructions for given, see telephone visit. Total time with patient: 15 minutesPast medical records and recent labs were reviewed.Past social and family history was reviewed.Current medications and side-effects reviewed today. No medication side effects.Used LLS. She reports being non-complaint of mTX on and off, so she has skipped a few of MTX doses. Shehad her last refill in 06/2019 for 6 months total, she should of been out of her meds by the end of Dec. Which tells me she has missed multiple doses of her MTX, since we are already in mid May. She is out of the medication since this past week.No labs since 09/2019. SHe has been non-complaint with her MTX lab monitoring. She has had her Rituxan infusion for 12/2019. She lost to follow up due to multiple issues. When I had lost connection: I contacted patient via my pediatrician/medical doctor, and translating the following instruction regarding her DEXA scan results and labs, and medication. RA. remicade via dr. Durham with anaphylaxis 2004. on enbrel [id number] with inadequate response. on chronic methotrexate 2000- to now 20 MG Q WEEKLY, including trial of Rasuvo/methotrexate SQ injections. with inadequate response. on Arava from 2006 to 2008 with inadequate response. on Orencia from 2011 to 2013 with inadequate response. on xeljanz 2014 for 7 months with inadequate response. on rituximab in June 2015 with good response. (on chronic prednisone on an average dose of 5-10 mg for several years in addition to biological and methotrexate). s/p L ankle surgery Dec 2016RF 195, CCP > 250. double strand DNA, high avidity double strand DNA, hepatitis panel, myositis panel, RP 3 negativestatus post left humerus fracture in March 2016. History of chronic prednisone usage. DEXA August 2016 showed -1.9, -1.8. R patella fracture and left shoulder. (? fragility fracture) Neck X-Ray ok Status post left ankle surgery December 2016.10/2019: Patient is overall stable. She does not any complaints. Her arthritis is stable. No Am stiffness, and no joint swelling. She reports taking Boniva for many years, at least 10 years. her DEXA scan was 08/2016 which showed osteopenia, she is not sure of having drug holiday. 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 She is requesting to see hand surgeon. her referral to podiatry has . She is due for her next Rituxan in 10/28. She denies any infections, fevers, rashes, no chest pain, cough, diarrhea, or nausea. Labs reviewed from 09/17/19: CBC/CMP nl, ESR/CRP nl, RF 15August 2018. overall doing well. Still has bilateral ankle pain with mild to moderate antalgic gait. has not seen podiatry. and we will refer. continue methotrexate 8 tablets once weekly. status post rituximab in April 2018. next due in October 2018. she has bilateral hand interdigit skin mottling due to moisture due to deformities of the fingers. to avoid infection, and to help rheumatoid arthritis deformities, will order DME Hand arthrosis with fingers separator. RTC [address] Angel.January 2019: for rituximab infused in 2015, she got a bili of $2000 and was sent to collection agency. she is due for reinfusion. reinfuse at 500 mg per infusion. she has left ankle pain with feeling of giving way for the last 2 months. She has not seen the surgeon who has operated on her left ankle in a while. We will re- refer.September 2018: status post rituximab infusion July 2018 by [facility] [place]. Negative contraindication to NSAID use. Meloxicam when necessary pain. next Rituximab infusion due in January 2019. On methotrexate. Continue blood testing every 3 monthly.March 2018: s/p Rituxan 1000 mg x 2, Sep 2015, 07/2016, 01/2017, Sep 2017(09/19 and 10/02; [facility]). Improved significantly. s/p fracture of R patella. [place] very rarely. . on MTX 8 q wk PO. due for rituximab now. will infuse 500 mg low dose as she is doing well and to decrease SE. Overall improved on this medication. side effects re-discussed. RA. remicade via dr. Durham with anaphylaxis 2004. on enbrel [id number] with inadequate response. on chronic methotrexate 2000- to now 20 MG Q WEEKLY, including trial of Rasuvo/methotrexate SQ injections. with inadequate response. on Arava from 2006 to 2008 with inadequate response. on Orencia from 2011 to 2013 with inadequate response. on xeljanz 2014 for 7 months with inadequate response. on rituximab in June 2015 with good response. (on chronic prednisone on an average dose of 5-10 mg for several years in addition to biological and methotrexate). s/p L ankle surgery Dec 2016RF 195, CCP > 250. double strand DNA, high avidity double strand DNA, hepatitis panel, myositis panel, RP 3 negativestatus post left humerus fracture in March 2016. History of chronic prednisone usage. DEXA August 2016 showed -1.9, -1.8. Neck X-Ray ok Status post left ankle surgery December 2016.March 2018: s/p Rituxan 1000 mg x 2, Sep 2015, 07/2016, 01/2017, Sep 2017(09/19 and 10/02; [facility]). Improved significantly. s/p fracture of R patella. [place] very rarely. . on MTX 8 q wk PO. due for rituximab now. will infuse 500 mg low dose as she is doing well and to decrease SE. Overall improved on this medication. side effects re-discussed.September 2018: status post rituximab infusion July 2018 by [facility] [place]. Negative contraindication to NSAID use. Meloxicam when necessary pain. next Rituximab infusion due in January 2019. On methotrexate. Continue blood testing every 3 monthly.January 2019: for rituximab infused in 2015, she got a bili of $2000 and was sent to collection agency. she is due for reinfusion. reinfuse at 500 mg per infusion. she has left ankle pain with feeling of giving way for the last 2 months. She has not seen the surgeon who has operated on her left ankle in a while. We will re- refer.June 2019. overall doing well. Still has bilateral ankle pain with mild to moderate antalgic gait. has not seen podiatry. and we will refer. continue methotrexate 8 tablets once weekly. status post rituximab in April 2018. next due in October 2018. she has bilateral hand interdigit skin mottling due to moisture due to deformities of the fingers. to avoid infection, and to help rheumatoid arthritis deformities, will order DME Hand arthrosis with fingers separator. RTC [address] Angel. RA. remicade via dr. Durham with anaphylaxis 2004. on enbrel [id number] with inadequate response. on chronic methotrexate 2000- to now 20 MG Q WEEKLY, including trial of Rasuvo/methotrexate SQ injections. with inadequate response. on Arava from 2006 to 2008 with inadequate response. on Orencia from 2011 to 2013 with inadequate response. on xeljanz 2014 for 7 months with inadequate response. on rituximab in June 2015 with good response. (on chronic prednisone on an average dose of 5-10 mg for several years in addition to biological and methotrexate). s/p L ankle surgery Dec 2016RF 195, CCP > 250. double strand DNA, high avidity double strand DNA, hepatitis panel, myositis panel, RP 3 negativestatus post left humerus fracture in March 2016. History of chronic prednisone usage. DEXA August 2016 showed -1.9, -1.8. Neck X-Ray ok Status post left ankle surgery December 2016.March 2018: s/p Rituxan 1000 mg x 2, Sep 2015, 07/2016, 01/2017, Sep 2017(09/19 and 10/02; [facility]). Improved significantly. s/p fracture of R patella. [place] very rarely. . on MTX 8 q wk PO. due for rituximab now. will infuse 500 mg low dose as she is doing well and to decrease SE. Overall improved on this medication. side effects re-discussed.September 2018: status post rituximab infusion July 2018 by [facility] [place]. Negative contraindication to NSAID use. Meloxicam when necessary pain. next Rituximab infusion due in January 2019. On methotrexate. Continue blood testing every 3 monthly.January 2019: for rituximab infused in 2015, she got a bili of $2000 and was sent to collection agency. she is due for reinfusion. reinfuse at 500 mg per infusion. she has left ankle pain with feeling of giving way for the last 2 months. She has not seen the surgeon who has operated on her left ankle in a while. We will re- refer RA. remicade via dr. alcaraz with anaphylaxis 2004. on enbrel [id number] with inadequate response. on chronic methotrexate 2000- to now 20 MG Q WEEKLY, including trial of Rasuvo/methotrexate SQ injections. with inadequate response. on Arava from 2006 to 2008 with inadequate response. on Orencia from 2011 to 2013 with inadequate response. on xeljanz 2014 for 7 months with inadequate response. on rituximab in June 2015 with good response. (on chronic prednisone on an average dose of 5-10 mg for several years in addition to biological and methotrexate). s/p L ankle surgery Dec 2016RF 195, CCP > 250. double strand DNA, high avidity double strand DNA, hepatitis panel, myositis panel, RP 3 negativestatus post left humerus fracture in March 2016. History of chronic prednisone usage. DEXA August 2016 showed -1.9, -1.8. Neck X-Ray ok Status post left ankle surgery December 2016.March 2018: s/p Rituxan 1000 mg x 2, Sep 2015, 07/2016, 01/2017, Sep 2017(09/19 and 10/02; [facility]). Improved significantly. s/p fracture of R patella. [place] very rarely. . on MTX 8 q wk PO. due for rituximab now. will infuse 500 mg low dose as she is doing well and to decrease SE. Overall improved on this medication. side effects re-discussed.september 2018: status post rituximab infusion July 2018 by [facility] [place]. Negative contraindication to NSAID use. Meloxicam when necessary pain. next Rituximab infusion due in January 2019. On methotrexate. Continue blood testing every 3 monthly. RA. remicade via dr. alcaraz with anaphylaxis 2004. on enbrel 8026-1125 with inadequate response. on chronic methotrexate 1999- to now 20 MG Q WEEKLY, including trial of Rasuvo/methotrexate SQ injections. with inadequate response. on Arava from 2006 to 2008 with inadequate response. on Orencia from 2011 to 2013 with inadequate response. on xeljanz 2014 for 7 months with inadequate response. on rituximab in June 2015 with good response. (on chronic prednisone on an average dose of 5-10 mg for several years in addition to biological and methotrexate). s/p L ankle surgery Dec 2016RF 195, CCP > 250. double strand DNA, high avidity double strand DNA, hepatitis panel, myositis panel, RP 3 negativestatus post left humerus fracture in March 2016. History of chronic prednisone usage. DEXA August 2016 showed -1.9, -1.8. Neck X-Ray ok Status post left ankle surgery December 2016.March 2018: s/p Rituxan 1000 mg x 2, Sep 2015, 07/2016, 01/2017, Sep 2017(09/19 and 10/02; [facility]). Improved significantly. s/p fracture of R patella. [place] very rarely. . on MTX 8 q wk PO. due for rituximab now. will infuse 500 mg low dose as she is doing well and to decrease SE. Overall improved on this medication. side effects re-discussed RA. remicade via dr. alcaraz with anaphylaxis 2004. on enbrel with inadequate response. on chronic methotrexate 2000- to now 20 MG Q WEEKLY, including trial of Rasuvo/methotrexate SQ injections. with inadequate response. on Arava from 2006 to 2008 with inadequate response. on Orencia from 2011 to 2013 with inadequate response. on xeljanz 2015 for 7 months with inadequate response. on rituximab in June 2015 with good response. (on chronic prednisone on an average dose of 5-10 mg for several years in addition to biological and methotrexate). status post Rituximab 07/2016, 01/2017. DUE 07/2017RF 195, CCP > 250. double strand DNA, high avidity double strand DNA, hepatitis panel, myositis panel, RP 3 negativestatus post left humerus fracture in March 2016. History of chronic prednisone usage. DEXA August 2016 showed -1.9, -1.8. Neck X-Ray ok Status post left ankle surgery December 2016. RA. remicade via dr. alcaraz with anaphylaxis 2005. on enbrel with inadequate response. on chronic methotrexate 2000- to now 20 MG Q WEEKLY, including trial of Rasuvo/methotrexate SQ injections. with inadequate response. on Arava from 2006 to 2008 with inadequate response. on Orencia from 2011 to 2013 with inadequate response. on xeljanz 2014 for 7 months with inadequate response. on rituximab in June 2015 with good response. (on chronic prednisone on an average dose of 5-10 mg for several years in addition to biological and methotrexate). status post Rituximab 07/2016, 01/2017. DUE 07/2017RF 195, CCP > 250. double strand DNA, high avidity double strand DNA, hepatitis panel, myositis panel, RP 3 negativestatus post left humerus fracture in March 2016. History of chronic prednisone usage. DEXA August 2016 showed -1.9, -1.8. Neck X-Ray ok Status post left ankle surgery December 2016. RA. remicade via dr. alcaraz with anaphylaxis 2005. on enbrel with inadequate response. on chronic methotrexate 2000- to now 20 MG Q WEEKLY, including trial of Rasuvo/methotrexate SQ injections. with inadequate response. on Arava from 2006 to 2008 with inadequate response. on Orencia from 2011 to 2013 with inadequate response. on xeljanz 2014 for 7 months with inadequate response. on rituximab in June 2015 with good response. (on chronic prednisone on an average dose of 5-10 mg for several years in addition to biological and methotrexate). status post Rituximab 07/2016, due 12/2016.RF 195, CCP > 250. double strand DNA, high avidity double strand DNA, hepatitis panel, myositis panel, RP 3 negativestatus post left humerus fracture in March 2016. History of chronic prednisone usage. DEXA August 2016 showed -1.9, -1.8. Neck X-Ray ok Follow UP Follow UP pt with himanshu noguera RA and multiple RA related pedal deformities. has new AFO but only uses sporadically. c/o L ft and heel pain RA. remicade via dr. alcaraz with anaphylaxis 2004. on enbrel [id number] with inadequate response. on chronic methotrexate 1999- to now 20 MG Q WEEKLY, including trial of Rasuvo/methotrexate SQ injections. with inadequate response. on Arava from 2006 to 2008 with inadequate response. on Orencia from 2011 to 2013 with inadequate response. on xeljanz 2014 for 7 months with inadequate response. on rituximab in June 2015 with good response. (on chronic prednisone on an average dose of 5-10 mg for several years in addition to biological and methotrexate)RF 195, CCP > 250. double strand DNA, high avidity double strand DNA, hepatitis panel, myositis panel, RP 3 negativestatus post left humerus fracture in March 2016. History of chronic prednisone usage. Rheumatoid Arthritis Rheumatoid Arthritis Follow Up of RA rela cristóbal foot/ankle deformities was sent AFO from [facility] but couldn't tolerate. needs custom fabricated devices Follow Up of RA rela cristóbal foot/ankle deformities Rheumatoid Arthritis Rheumatoid Arthritis Rheumatoid Arthritis Surgery Evaluation iatrogenic an d RA changes B/L. sent auth for custom molded ankle gauntlet but auth incorrect. Surgery Evaluation Rheumatoid Arthritis Rheumatoid Arthritis Follow Up of Follow Up of (comments) pt with longstanding RA. hx of B/L foot surgery. now with deformity B/L due to both iatrogenic and RA causes. primary complaint is L ankle. MRI revealed arthritic changes of L STJ, tendonopathy and partial tear of peroneus brevis, tear of ankle ligaments. Rheumatoid Arthritis Rheumatoid Arthritis Feet Pain (Ankles) (comments) pt with longstanding RA c/o pain L 3rd toe and R 4th toe. hx of B/L bunionectomy and repair HT 2nd toe B/L 8 yrs ago with resultant persistent deformity Feet Pain (Ankles) Functional Status Date Functional Assessmen t No Information Instructions Date Instruction Additional Infor radha Nitroglycerin paste to the toes twice daily. Iodine soaked gauze between all the toes and on the forefoot. Keep dressing off when resting. Stop elevating. Foot in dependent position. Amlodipine two times a day.Vascular referral.Needs hyperbaric.Abx.Informed patient and daughter that sometimes with a forefoot correction of RA, there can be ischemic complications and we will do everything we can to revive her toes. At this time, the 2nd toe is of most concern. Will monitor her closely. RTC in 1 week. Related to Hallux varus (acquired), right foot Cleaned the area wit h salineRemoved K -wires under local anesthesia, patient tolerated well. Applied adaptic soaked in iodine to all the toes and the webspaces where there is significant moisture. The duskiness in her entire forefoot is concerning, and I think it may be due to the significant moisture sitting there for a week from her shower. Will monitor her closely. RTC in 1 week.Do not shower, do not get it wet. Do not change dressing. WBAT in CAM. Related to Hallux varus (acquired), right foot RA diagnosis x 30 ye ars, well controlled. Significant pain and no relief in symptoms with shoe modifications or inserts. Feels that she has exhausted all her conservative options. We discussed the various treatment options including both conservative and surgical management. Patient feels that all conservative measures have been exhausted. Patient continues to have pain and it is impacting their quality of life. Expectations were clarified. The procedure was reviewed in detail and the post-operative course explained. Patient expectations are appropriate and all questions were answered.Risks, Benefits, Alternative and Potential complications have been discussed in depth. The patient had a chance to ask questions regarding the surgery and the post operative course and wants to proceed with surgery.RIGHT FOOT: First MTPJ fusion, 2-4 met head resection v. osteotomy and pinning. and hammertoe arthrodesis. Tailor's bumpectomy would be sufficient with derotational arthroplasty of the 5th toe. Goals: alleviate sub met head pressure, correct hammertoes and correct varus.Surgery 02/05/2024 Related to Hallux varus (acquired), right foot RA diagnosis x 30 ye ars, well controlled. Significant pain and no relief in symptoms with shoe modifications or inserts. Feels that she has exhausted all her conservative options. Discussed with the patient need for new x-rays. However, based on current xrays from 2020, she would benefit from first MTPJ fusion, 2-4 met head osteotomy, and hammertoe arthrodesis. Tailor's bumpectomy would be sufficient with derotational arthroplasty of the 5th toe. Plan for next available surgery. Went over procedure, postop course, risks and benefits. RTC to discuss new WB xrays. Related to Hallux varus (acquired), right foot Ongoing radiculopath y, she is working with her PCP for alleviation of those symptoms. Related to Radiculopathy pt here for f/ucurre ntly using Ketoconazole 2% shampoo and clobetasol 0.05% solution 2x/weekly with great effectpt reports condition does come and go, but pruritus has rash has improvedrefill Ketoconazole 2% shampoo 2-3x/ week - apply let sit for 5-10 min, rinserefill Clobetasol 0.05% solution 2-3x/week at night prior to washing hair following morning - x 3 weeks on/1 week offf/u 3 mos prn Related to Seborrheic dermatitis, unspecified located on L occipit al scalppt reports has had for sometimec/o pruritus and mild tendernessh/o RA currently on MTX 20 mg q weeklydespite treatment above condition has persistedon exam white flaky patch notedKetoconazole 2% shampoo 2-3x/ week - apply let sit for 5-10 min, rinseClobetasol 0.05% solution 2-3x/week at night prior to washing hair following morning - x 3 weeks on/1 week offf/u 3 mos Related to Seborrheic dermatitis, unspecified Diagnosis and progno sis reviewed/discussed with patient. Patient education and medical management discussed. Recommend seeing PCP for management of nerve symptoms likely caused from the back. They are inconsistent, and not always related to WB. Patient has options for: - physical therapy- acupuncture- nerve pain medications- neurology referral- surgeryAll questions answered. Patient agrees with plan. Will talk to PCP.RTC prn. Related to Radiculopathy Glaucoma Bilateral e yesShe states this led to her decreased left eye visionContinue ophthalmic drops in eyes as directed ( she takes Brimodine tartate opth sln 0.25% one drop in each eye bid and another drop in each eye qd - she forgot name of med)Advised on f/u appt with [facility] - request referral from PCPShe has note from legal analyst - stating to f/u with an Ophthalmologistf/u with PCP Related to Glaucoma of both eyes, unspecified glaucoma type Due to Rheumatoid ar thritis complicationContinue Gabapentin as directed Member admits to N/T bilateral hands and feetMonofilament test abnormal bilateral feetAdvised on importance of daily foot checks and proper foot care and shoesMonitor and f/u with PCP Related to Polyneuropathy in diseases classified elsewhere CXR 08/29/21 shows a ortic tortuosityOptimal management of BP and Cholesterol with diet and exercises as tolerated to prevent progression and cardiovascular diseaseAdvised to maintain a low-fat, low-cholesterol diet, low-sodium diet Monitor and f/u with PCP Related to Tortuous aorta Chronic pain - back, hands, knees, feet Due to RAAdvised on use and safety precautions with Meloxicam and Gabapentin - not to exceed prescribed doseregular labs and f/u with PCP Related to Other chronic pain Due to Prolia; Metho trexate and RituxinContinue management and evaluation with RheumatologistCounseled on increased risk of infectionContinue with infection prevention measures including hand hygiene and upto date with vaccinationsMonitor, F/u with PCP Related to Immunosuppression due to drug therapy Continue f/u and man agement with Eap Counselor (last appt 05/09/2023)Continue Calcium and vit DDrug Holiday with [facility] since 09/01/2020.started Prolia #11 May 2022, due #2 Novrolia #3 in MayAdvised on med safety - immunosuppressant medregular labs and f/u with PCP Related to Age-related osteoporosis without current pathological fracture Continue regular f/u with Eap Counselor for management Per Rheum note 05/09/23: Continue MTX 8 tabs weekly and folic acid 1mg qd + Rituxan infusions 500 mg every 6 months; Recent labs stable; Last infusion 03/2023; next infusion September - she starts to have increase joint pain right at 6 months stacia of her infusionMember denies any side effects of medications and states is tolerating wellRegular labs and f/u with PCP Related to Seropositive rheumatoid arthritis Senile purpura noted on left upper arm; she states bruises easily and bruise stays longer Advised on skin protection with skin moisturizer and wearing, long sleeve shirt and pants; use of sunscreen when outside; and preventing trauma/injury to skin. Maintain fluid hydrationMonitor labs and f/u with PCP Related to Senile purpura PHQ score: 2Patient feels well; good family supportDenies Suicidal ideation and plans or feelings to harm herself or othersStates Depression in the past but currently no symptomsFollow up with PCP per usual interval and earlier if worsening symptomsContinue following closely with PCP Related to Recurrent major depressive disorder, in full remission Reviewed chronic con ditions and adherence to current plans.Advised on Routine screening labs. Pt to f/u with PCP for any abnormality.Anticipatory guidance provided with emphasis on fall prevention and safety; exercise as tolerated and healthy nutrition.PHQ-9 responses reviewed and recommendations made; MiniCog assessment done.Medications reviewed with patientEncouraged on dental care and annual f/u with Dentist.COA reviewed with patient; Overall functional status fairDiscussed on urinary incontinence; denies symptoms.Advised on disease detection and prevention with screening tests and vaccinationsAdvised on monthly self breast exams and skin checks; if any abnormality f/u with PCPExplained on POLST and AD formsCounseled on importance of f/u with PCP and regular labs.All recommendations and questions were answered to member satisfaction.Qauntaflo done in clinic results wnl Related to Encounter for other general examination Recommend a biopsy t o r/o underlying malignancy/atypiaDue to the location of the lesions, patient is referred to ENT for biopsy Related to Neoplasm of uncertain behavior of skin Cont POC Related to Encou nter for other orthopedic aftercare auth PT Related to Poste rior tibial tendinitis of left leg rx voltaren gel Related to Pain of left heel DC Related to Pain in left shoulder Cont POC. 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 Rela cristóbal to Pain in left shoulder cont per POC Related to Pain in left shoulder See POC Related to Pain in left shoulder as above Related to Valgu s deformity, not elsewhere classified, right ankle auth for consult hiram h geriatric nurse practitioner to fabricate custom AFO Related to Pain, joint, ankle and foot, unspecified laterality resubmitted auth for L AFOto try for 1-2 moif symptoms persist will get 2nd opinion Related to Disorder of bone and cartilage, unspecified methotrexate - Blood testing needs to be done and monitored every 2-3 months due to potential serious side effects on the liver, kidneys, bone marrow etc. Do not use alcohol or take the antibiotic Bactrim / Septra while using methotrexate. Related to Rheumatoid arthritis Prednisone: Take wit h food if it upsets your stomach. Do not stop medication suddenly-doing so may be dangerous. If you wish to stop steroids, call your motorcoach operator, so it can be safely tapered down. May cause weight gain, insomnia, mood changes, bruising, slow wound healing, Osteoporosis, glaucoma, hypertension, diabetes etc. 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 Do not stop medication suddenly-doing so may be dangerous. If you wish to stop steroids, call your motorcoach operator, so it can be safely tapered down. May cause weight gain, insomnia, mood changes, bruising, slow wound healing, Osteoporosis, glaucoma, hypertension, diabetes etc. Related to Rheumatoid arthritis auth xrays B/Ldiscus sed correctionwarned multiple procedures necessary and difficult due to RA Related to Hammertoe Prednisone: Take wit h food if it upsets your stomach. Do not stop medication suddenly-doing so may be dangerous. If you wish to stop steroids, call your motorcoach operator, so it can be safely tapered down. May cause weight gain, insomnia, mood changes, bruising, slow wound healing, Osteoporosis, glaucoma, hypertension, diabetes etc. Related to Chronic steroid use Take with food if it upsets your stomach. Do not stop medication suddenly-doing so may be dangerous. If you wish to stop steroids, call your motorcoach operator, so it can be safely tapered down. May cause weight gain, insomnia, mood changes, bruising, slow wound healing, Osteoporosis, glaucoma, hypertension, diabetes etc. Related to Chronic High risk medication use Assessments Type Assessment Date No Information Patient Care Teams Name Effective Dates (start - stop) Status Members No Information
--- OUTSIDE RECORDS SUMMARY | 2025-04-01 12:17 | XMS_ITS | Encounter Summary ---
Author Organization [employer] Address [address] [place] [address] [address] [place] [address] Care Team Providers Care Manager Math Name Role Phone Name, Abimael ARANDA Primary Care Provider [phone] Encounter Details Date Type Department Care Team (Late st Contact Info) Description 12/28/2022 Orders Only [facility] MEDICINE [address] [place], [place] [phone] Rena Rivera LPN Social History Tobacco Use [...] filedocumented in this encounter Care Teams Manager Math Relationship Specialty Start Date End Date Name, MD Abimael [address] [place] [address] PCP - General Family Medicine 09/24/19 documented as of this encounter
--- OUTSIDE RECORDS SUMMARY | 2025-04-01 12:17 | XMS_ITS | Encounter Summary ---
Author Organization [employer] Address [address] [place] [address] [address] [place] [address] Care Team Providers Care Global Regulatory Affairs Manager Name Role Phone Name, Abimael ARANDA Primary Care Provider Reason for Visit * Reason Onset Date Comments Dental Paperwork 03/01/2023 Encounter Details Date Type Department Care Team ([facility] st Contact Info) Description 03/01/2023 Telephone [facility] MEDICINE [address] [place], [place] [phone] Name, MD Abimael [address] [place] [address] Dental Paperwork Social History Tobacco Use Types [...] soon as possible. Please contact pt at [phone] Bulgarian Speaker documented in this encounter Plan of Treatment Not on file documented as of this encounter Visit Diagnoses Not on filedocumented in this encounter Care Teams Global Regulatory Affairs Manager Relationship Specialty Start Date End Date Name, MD Abimael [address] [place] [address] PCP - General Family Medicine 09/24/19 documented as of this encounter
--- OUTSIDE RECORDS SUMMARY | 2025-04-01 12:17 | XMS_ITS | Encounter Summary ---
Author Organization [employer] Address [address] [facility] [address] [place] [address] Care Team Providers Care Body Technician Name Role Phone Name, Abimael ARANDA Primary Care Provider [phone] Encounter Details Date Type Department Care Team ([facility] st Contact Info) Description 02/11/2023 Orders Only [facility] [address] [place], [place] [phone] Heather Obregon LPN Social History Tobacco Use [...] on filedocumented in this encounter Care Teams Body Technician Relationship Specialty Start Date End Date Name, MD Abimael [address] [place], [place] [phone] PCP - General Family Medicine 09/24/19 documented as of this encounter
--- OUTSIDE RECORDS SUMMARY | 2025-04-01 12:18 | XMS_ITS | Clinical Summary ---
Author Organization [employer] [facility] ity Address [address] [place] [address] Care Team Providers Care Morphologist Name Role Phone Unavailable Primary Care Provider [...] Vaccines (1 of 2) 2012 COVID-19 Vaccine ( - 2023-2 5 season) 2024 Influenza Vaccine (Season Ended) 2025 RSV Immunization Adult Patie nts (1 - 1-dose 75+ series) 2037 HIB [...] age to complete this topic Meningococcal B Vaccine Aged Out No l onger eligible based on patient's age to complete [...]
--- OUTSIDE RECORDS SUMMARY | 2025-04-01 12:18 | XMS_ITS | Encounter Summary ---
Author Organization [employer] Address [address] [place] [address] Care Team Providers Care Obiee Consultant Name Role Phone Name, Abimael ARANDA Primary Care Provider [phone] Encounter Details Date Type Department Care Team (Latest Contact Info) Description 04/01/2025 Travel Social History Tobacco Use Types Packs/Day Years Used Date Smoking Tobacco: Never Passive Smoke Exposure: Never Smokeless Tobacco: Never Alcohol Use Standard Drinks/Week Comments Never 0 (1 standard drink = 0.6 oz pur e alcohol) Depression Answer Date Recorded Patient Health Questionnaire-9 Score 1 04/01/2025 Patient Health Questionnaire-9 Score 1 04/01/2025 Last PHQ-9: Questionnaire Data Not on file 0 04/01/2025 Housing Stability Answer Date Recorded What is your housing situation today? I have fabián arteaga 04/01/[address] you li ve. Do you have problems with any of the following? None of the above 04/01/2025 Food Insecurity Answer Date Recorded Within the past 12 months, y ou worried that your food would run out before you got money to buy more: Never True 04/01/2025 Within the past 12 months,th e food you bought just didn't last and you didn't have enough money to get more: Never True Transportation Answer Date Recorded In the past 12 months, has l ack of transportation kept you from medical appts, meetings, work or from getting things needed for daily living? I am not sure 04/01/2025 Utilities Answer Date Recorded In the past 12 months, has t he electric, gas, oil or water company threatened to shut off services in your home? No 04/01/2025 Depression Answer Date Recorded Patient Health Questionnaire-2 Score 0 04/01/2025 Internet Access Answer Date Recorded Internet Access Q1 I am not sure 04/01/2025 Internet Access Q2 Not on file 04/01/2025 Comments No Sex and Gender Information Value Date Recorded Sex Assigned at Female 09/10/2022 10:14 AM EDT Legal Sex Female 10:14 AM EDT Gender Identity Female 09/10/2022 10:14 AM EDT Sexual Orientation Straight 09/10/2022 10 :14 AM EDT documented as of this encounter Functional Status * Over the past 2 weeks, how often have you been bothered by any of the following problems? Question Answer Date of Assessment Author Patient Health Questionnaire-2 Score 0 04/01/2025 11:51 AM BHAVANAT Shahid Stoner MA * Little interest or pleasure in doing things Answer Date of Assessment Author Not at all 04/01/2025 11:51 AM Cuate Landon MA * Feeling down, depressed, or hopeless Answer Date of Assessment Author Not at all 04/01/2025 11:51 AM Cuate Landon MA * Trouble falling or staying asleep, or sleeping too much Answer Date of Assessment Author Several days 04/01/2025 11:51 AM Cuate Landon MA * Feeling tired or having little energy Answer Date of Assessment Author Not at all 04/01/2025 11:51 AM Cuate Landon MA * Poor appetite or overeating Answer Date of Assessment Author Not at all 04/01/2025 11:51 AM Cuate Landon MA * Feeling bad about yourself - or that you are a failure or have let yourself or your family down Answer Date of Assessment Author Not at all 04/01/2025 11:51 AM Cuate Landon MA * Trouble concentrating on things, such as reading the newspaper or watching television Answer Date of Assessment Author Not at all 04/01/2025 11:51 AM Cuate Landon MA * Moving or speaking so slowly that other people could have noticed? Or the opposite - being so fidgety or restless that you have been moving around a lot more than usual. Answer Date of Assessment Author Not at all 04/01/2025 11:51 AM EDT Cuate Stoner MA * Thoughts that you would be better off or hurting yourself in some way Answer Date of Assessment Author Not at all 04/01/2025 11:51 AM EDT Cuate Stoner MA * Patient Health Questionnaire-9 Score Answer Date of Assessment Author 1 04/01/2025 11:51 AM EDT Cuate Stoner MA * How difficult have these problems made it for you to do your work, take care of things at home, or get along with other people? Answer Date of Assessment Author Somewhat difficult 04/01/2025 11:51 AM EDT Cuate Cardenas MA documented as of this encounter Plan of Treatment Not on file documented as of this encounter Visit Diagnoses Not on filedocumented in this encounter Additional Health Concerns Assessment Noted Time PHQ-9 Depression Total Score: 1 04/01/20 25 11:51 AM EDT documented as of this encounter Care Teams Obiee Consultant Relationship Specialty Start Date End Date Name, MD Abimael [address] [place] [address] PCP - General Family Medicine 09/24/19 documented as of this encounter
--- OUTSIDE RECORDS SUMMARY | 2025-04-01 12:18 | XMS_ITS | Clinical Summary ---
Author Organization [employer] Address [address] [place] [address] [address] [place] [address] Care Team Providers Care Vault Worker Name Role Phone Name, Abimael ARANDA Primary Care Provider [phone] Allergies Active Allergy Reactions Criticality Noted Date [...] mg by mouth in the morning. Active Blood Pressure kitIndications:Es sential hypertension For daily home use 1 kit 024 Active pravastatin (Pravachol) 20 MG tablet TAKE 1 TABLET BY MOUTH EVERY MORNING 30 tablet 11 025 Active fluticasone (Flonase) 50 MCG/ACT nasal spray Administer 2 sprays into each nostril Once per day. 16 g 3 025 Active glucose blood (FREESTYLE LITE) test strip TEST BLOOD SUGAR EVERY DAY 50 strip 6 025 Active Blood Glucose Monitoring Suppl (FreeStyle [place] Lite) w/Device kit Use to test blood sugar 1 times daily 1 kit 025 Active Lancets misc Use to test blood sugar 1 times daily 100 each 025 Active Alcohol Swabs 70 % padsIndications:T ype 2 diabetes mellitus without complication, without long-term current use of insulin ([facility]) Use to test blood sugar 1 times daily 100 each 025 Active Ventolin HFA 108 (90 Base) MCG/ACT inhaler INHALE 2 PUFFS BY MOUTH EVERY 6 HOURS NEEDED FOR WHEEZING OR SHORTNESS OF BREATH 18 g 2 025 Active losartan (Cozaar) 50 MG tabletIndications :Essential hypertension TAKE 1 TABLET BY MOUTH EVERY DAY IN THE MORNING 90 tablet 3 025 Active pantoprazole (ProtoNix) 20 MG EC tabletIndications :Heartburn TAKE 1 TABLET BY MOUTH EVERY DAY 90 tablet 3 025 Active DULoxetine (Cymbalta) [address] capsuleIndication s:Depressive disorder TAKE 1 CAPSULE BY MOUTH EVERY DAY IN THE MORNING 30 capsule 3 025 Active Acetaminophen Extra Strength 500 MG tablet TAKE 1 TABLET BY MOUTH EVERY 8 HOURS NEEDED FOR PAIN 60 tablet 2 025 Active cholecalciferol VITAMIN D (Vitamin D-3) 50 MCG (1999 UT) tablet TAKE 1 TABLET BY MOUTH EVERY DAY 90 tablet 1 025 Active cetirizine (ZyrTEC) 10 MG tablet Take 1 tablet (10 mg) by mouth Once per day. 30 tablet 2 025 2024 Active cholecalciferol VITAMIN D (Vitamin D-3) 50 MCG (1999 UT) tablet TAKE 1 TABLET BY MOUTH ONCE DAILY 90 tablet 1 024 2024 Discontinued loratadine (Claritin) 10 MG tablet TAKE 1 TABLET BY MOUTH EVERY DAY IN THE MORNING 90 tablet 1 024 2024 Discontinued loratadine (Claritin) 10 MG tablet TAKE 1 TABLET BY MOUTH EVERY DAY IN THE MORNING 90 tablet 1 025 2024 Discontinued(T herapy completed) Active Problems [...] Encounters Date Type Department Care Team Description 04/01/2025 11:15 AM EDT Office Visit [facility] MED[facility]INE [address] [place] [phone] Abimael Mario MD Type 2 diabetes mellitus without complication, without long-term current use of insulin ([facility]) (Primary Dx); Seasonal allergic rhinitis, unspecified trigger; Encounter for immunization 04/01/2025 Travel 03/31/2025 Telephone [facility]INE [address] [place] [phone] Lorena Rebollar MA Chart Prep 03/24/2025 Patient Outreach [facility] [address] [place] [phone] Abimael Mario MD Pre-visit Planning ((Unable to reach for PVP screening, LVM)) 03/04/2025 Refill [facility] [address] [place] [address] Abimael Mario MD 02/28/2025 Refill [facility] [address] [place] [phone] Abimael Mario MD 02/14/2025 Refill [facility] [address] [place] [address] Annalisa Butcher MD Depressive disorder 01/17/2025 Refill [facility] [address] [place] [address] Abimael Mario MD Essential hypertension; Heartburn 01/05/2025 Telephone [facility] [address] [place] [address] NameAbimael MD May recall from Last 3 Months Immunizations Immunization Administration Dates Next Due Influenza injectable quadriv alent preservative free 08/23/2023,08/10/2022,08/07/2021 MMR 10/09/1999 Pfizer Covid-19 Vaccine 12+ 04/25/2022 Pfizer Covid-19 Vaccine 12+ meri-sucrose (Espinal Cap) 04/25/2022 Pneumococcal Conjugate PCV 20 03/05/2024 Pneumococcal Polysaccharide PPSV23 01/21/2020 TD (adult), 2 Lf tetanus tox oid, preservative free, adsorbed 08/04/2009 Tdap 04/01/2025,02/10/2015 Family History Medical History Relation Name Comments [...] your housing situation today? I have fabián sing 04/01/[address] you li [...] Sign Reading Time Taken Comments Blood Pressure 140/88 04/01/2025 10:56 AM EDT Pulse 74 04/01/2025 10:56 AM EDT Temperature 36.9 ??C (98.4 ??F) 04/01/2025 10:56 AM E DT Respiratory Rate 18 04/01/2025 10:56 AM EDT Oxygen Saturation 95% 04/01/2025 10:56 AM EDT Inhaled Oxygen Concentration - - Weight 75.4 kg (166 lb 2 oz) 04/01/2025 10:56 AM EDT Height 150.7 cm (4' 11.35 ) 04/01/2025 10:56 AM EDT Body Mass Index 33.16 04/01/2025 10:56 AM EDT Plan of Treatment Health Maintenance Due Date [...] 08/10/2022, 08/07/2021 Lipid Panel 08/27/2024 08/27/2023, 04/26/2022 Diabetes: Foot Exam 03/05/2025 03/05/2024, 03/05/2024, 03/05/2024, Additional history exists Diabetes: Urine Protein Screening 03/11/2025 03/11/2024, 04/26/2022 Mammogram 04/09/2025 04/09/2024, 03/13, 03/21/2023, Additional history exists Pap Smear 05/28/2025 05/28/2022 Diabetes: Hemoglobin A1C 10/02/2025 025, 08/12/2024, 03/05/2024, Additional history exists Alcohol/Substance Use Screening 04/01/2026 04/01/2025 Depression Screening 04/01/2026 04/01/2025, 04/01/20 25 Disability Screening 04/01/2026 04/01/2025 SDOH Screening 04/01/2026 04/01/2025 Tobacco Screening 04/01/2026 04/01/2025 Eye Exam 09/11/2026 09/11/2024, 11/2023, 09/11/2024, Additional history exists Colorectal Cancer Screening 09/15/2026 FIT DNA/Cologuard 09/15/2026 09/15/2023 Cervical Cancer Screening 05/28/2027 HPV/Cotest 05/28/2027 05/28/2022 DTaP/Tdap/Td Vaccines (3 - Td or Tdap) 04/01/2035 04/01/2025, 02/10/2015, 08/04/2009 Hepatitis C Screening Completed 02/11/2015 Pneumococcal Vaccine: [...] Name Priority Date/Time Associated Diagnosis Comments POCT GLYCATED HEMOGLOBIN, TOTAL Routine 04/01/2025 10:58 AM EDT Type 2 diabetes mellitus without complication, without long-term current use of insulin (CMS/HCC) POCT GLUCOSE Routine 04/01/2025 10:58 AM EDT Type 2 diabetes mellitus without [...] HPV 16,18/45 Routine 05/28/2022 10:31 AM EDT MAMMOGRAM GENERIC Routine 09/25/2019 1:2 6 PM EST HM HEPATITIS C ANTIBODY Routine 02/11/2015 from Last 3 Months or Most Recently Relevant to Health Maintenance Results * (ABNORMAL) POCT HGB A1C (04/01/2025 10:58 AM EDT) Hemoglobin A1C 6.2(A) 4.0 - 6.0 % QC Media Lot # [id number] Lot# Expiration Date 301 Blood 04/01/2025 10:5 8 AM EDT us Abimael Mario MD POINT OF CARE TEST ENTER/EDIT OR DERABLES Final Result * POCT Glucose (04/01/2025 10:58 AM EDT) Glucose Blood, POC 94 60 - 200 mg/dL QC Media Lot # [id number] Lot# Expiration Date Blood Capillary blood specimen / Unknown 04/01/2025 10:58 AM EDT us Abimael Mario MD POINT OF CARE TEST ENTER/EDIT OR DERABLES Final Result * (ABNORMAL) Albumin, Random Urine W/Creatinine (03/11/2024 9:09 AM EDT) Creatinine, Urine 145.84 mg/dL [facility] Microalbumin Urine 49.0 mg/L [facility] Microalbum Creatinine Ratio Ur 33.5(H) <30 ug/mg cr [facility] Comment:Albumin/Creatinine R atio Reference Ranges: Normal: < 30 ug/mg creatinine Microalbuminuria: 30 - 300 ug/mg creatinineClinical Albuminuria: > 300 ug/mg creatinine Urine (Urine, Random) 03/11/2024 9:09 AM EDT 03/11/2024 11:36 AM EDT us Abimael Mario MD LAB URINE ORDERABLES Final Resul t [facility] [address] [place] [phone] * Cologuard?? colon cancer screening (09/15/2023 7:03 AM EST) Cologuard Result Negative Negative 09/24/20 5:11 PM EST [facility] (CLIA #:[id number]) Comment: NEGATIVE TEST RESULT. A negative Cologuard [...] screened with both Cologuard and colonoscopy. (Param Holder et al, N Engl J Med 2014;370(14):1286- 1297) The normal value (reference range) for this assay is negative. COLOGUARD RE-SCREENING RECOMMENDATION: Periodic colorectal cancer screening is an important part of preventive healthcare for asymptomatic individuals at average risk for colorectal cancer. ??Following a negative Cologuard result, the [place] [employer] Society and U.S. Multi-Society Task Force screening guidelines recommend a Cologuard re-screening interval of 3 years. References: [place] [employer] Guideline for Colorectal Cancer Screening: https://www.cancer.org/cancer/jwpte-xknmfo-pxheym/tjrnkxstl-frccbunac-eccwosa/ac s-rec ommendations.html.; Yaya BALDWIN, Gemini DE LEON, Adelaide DevineK, Colorectal Cancer Screening: Recommendations for Physicians and Patients from the U.S. Multi-Society Task Force on Colorectal Cancer Screening , Am J Gastroenterology 2017; 112:6872-7252. TEST DESCRIPTION: Composite algorithmic analysis of stool [...] screened with both Cologuard and colonoscopy. (Param Holder et al, N Engl J Med 2014;370(14):6267-8545.) Cologuard may produce a false negative or false positive result (no colorectal cancer or precancerous polyp present at colonoscopy follow up). A negative Cologuard test result does not guarantee the absence of CRC or advanced adenoma (pre-cancer). The current Cologuard screening interval is every 3 years. ([place] [employer] Society and U.S. Multi-Society Task Force). Cologuard performance data in a 10,000 patient pivotal study using colonoscopy as the reference method can be accessed at the following location: www.Krux/results. Additional description of the Cologuard test process, warnings and precautions can be found at www.Fixit Expressrd.com. Stool specimen (specimen) 09/15/2023 7:03 AM EST 09/17/2023 8:52 PM EST us Abimael Name LAB MOLECULAR DIAGNOSTICS ORDERA BLES Final Result [facility] (CLIA #:[id number]) [address] [place] [id number], * (ABNORMAL) Lipid Panel, Standard (08/27/2023 9:41 AM EDT) Triglycerides 212(H) <150 mg/dL [facility] Comment:Desirable Triglyceri de: less than 150 mg/dLBorderline High Triglyceride 150-199 mg/dLHigh Triglyceride: 200-499 mg/dLVery High Triglyceride: greater than or equal to 5OO mg/dL Cholesterol 230(H) <200 mg/dL [facility] Comment:Desirable Cholestero l: less than 200 mg/dLBorderline High Cholesterol: 200-239 mg/dLHigh Cholesterol: greater than 239 mg/dL LDL Cholesterol Calculated 144(H) <100 mg/dL [facility] Comment:Desirable LDL: less than 100 mg/dLNear Optimal/Above Optimal LDL: 110- 129 mg/dLBorderline High LDL: 130-159 mg/dLHigh LDL: 160-189 mg/dLVery High LDL: greater than or equal to 190 mg/dL HDL Cholesterol 44 >40 mg/dL [facility] Comment:Desirable HDL: great er than 40 mg/dL Note: This HDL assay may give artificially low results in patients with liver disease. Blood Venous blood specimen / Unknown 08/27/2023 9:41 AM EDT 08/27/2023 9:41 AM EDT us Abimael Name LAB BLOOD ORDERABLES Final Resul t [facility] [address] [place] [phone] * THINPREP TIS PAP AND HPV [...] slide preparation; their use is not recommended. Gas Treater: SEE COMMENT [facility] Comment: BJMyke, CT(ASCP) CT screening location: [address] ??[phone] HPV nRNA E6/E7 Not Detected Not Detected [facility] Comment: Methodology: [employer]-Mediated Amplification This assay detects E6/E7 viral messenger RNA (mRNA) from 14 high-risk HPV types (16,18,31,33,35,39,45,51,52,56,58,59,66,68). ? Cervical sources are required for HPV testing. If a vaginal source from a patient who has had a total hysterectomy with removal of cervix was ?? submitted, please contact the testing laboratory for alternative testing options. ?? For additional information, please refer to http://education.Ahometo/faq/HLO673e6 (This link if provided for information/ educational purposes only.) Interpretation/Res ult: SEE COMMENT [facility] Comment: Negative for intraepithelial lesion or malignancy. Atrophic pattern; predominantly parabasal cells LMP: MENOPAUSE @40 [facility] Prev. BX: NONE GIVEN [facility] Prev. PAP: NIL 2016 NIL 2013 [facility] SOURCE: None given [facility] Statement Of Adequacy: SATISFACTORY FOR EVALUATION [facility] 05/28/2022 10:3 1 AM EDT us Silvia OSHEA LAB PATHOLOGY ORDERABLES Final Result [facility] [address] * MAMMO BREAST LOCAL INITI [address]55[address] 1 (09/25/2019 1:26 PM EST) Anatomical Region Laterality Modality Breast Bilateral Mammography 09/25/2019 1:26 PM EST Narrative 09/30/2019 9:43 AM EST Refer to the Notes tab for result details [facility] Procedure: MAMMO BREAST LOCAL INITI 08147 1 Procedure Note Provider, MD Vernon - 02/02/2023 Refer to the Notes tab for result details [facility] Procedure: MAMMO BREAST LOCAL INITI 40831 1 Stephen Bell MD IMG BI PROCEDURES Final Resul t * HM Hepatitis C Antibody (02/11/2015) Hepatitis C Antibody Nonreactive Blood Abimael Mario MD HEALTH MAINTENANCE Final Result from Last 3 Months or Most Recently Relevant to Health Maintenance Insurance [facility] ONE CARE < [address] [place] [id number] Care Teams Vault Worker Relationship Specialty Start Date End Date Name, MD Abimael [address] [place] [phone] PCP - General Family Medicine 09/24/19
--- OUTSIDE RECORDS SUMMARY | 2025-04-01 12:18 | XMS_ITS | Encounter Summary ---
Author Organization [employer] Address [address] [facility] [address]t [place] [address] Care Team Providers Care Welt Trimming Machine Operator Name Role Phone Name, Abimael ARANDA Primary Care Provider [phone] Reason for Visit * Reason Comments Med Refill Encounter Details Date Type Department Care Team (Late st Contact Info) Description 09/30/2023 Refill [facility] [address] [place], [place] [phone] Name, MD Abimael [address] [place], [place] [phone] Dyslipidemia Social History Tobacco Use Types Packs/Day [...] PM EST T/C placed to pt via [employer] Junior Mechanical Engineer Shannon #[id number] to advise of message from pcp Please [...] hyperlipidemia documented in this encounter Care Teams Welt Trimming Machine Operator Relationship Specialty Start Date End Date Name, MD Abimael [address] [place] [phone] PCP - General Family Medicine 09/24/19 documented as of this encounter
--- OUTSIDE RECORDS SUMMARY | 2025-04-01 12:18 | XMS_ITS | Encounter Summary ---
Author Organization [email or web address] Address [address] [place] [address] [address] [place] [address] Care Team Providers Care Freezer Machine Operator Name Role Phone Name, Abimael ARANDA Primary Care Provider [phone] Encounter Details Date Type Department Care Team ([facility] st Contact Info) Description 04/01/2025 11:15 AM EDT Office Visit [facility] MEDICINE [address] [place], [place] [phone] Name, MD Abimael [address] [place] [address] Type 2 diabetes mellitus without complication, without long-term current use of insulin ([facility]) (Primary Dx); Seasonal allergic rhinitis, unspecified trigger; Encounter for immunization Social History Tobacco Use Types Packs/Day Years [...] your housing situation today? I have fabián chandler 04/01/[address] you li [...] Mass Index 33.16 04/01/2025 10:56 AM EDT documented in this encounter Functional Status * Over the past 2 weeks, how often have you been bothered by any of the following problems? Question Answer Date of Assessment Author Patient Health Questionnaire-2 Score 0 04/01/2025 11:51 AM EDT Shahid Stoner MA * Little interest or pleasure in doing things Answer Date of Assessment Author Not at all 04/01/2025 11:51 AM EDT Cuate Stoner MA * Feeling down, depressed, or hopeless [...] 04/01/2025 11:51 AM Cuate Landon MA * Thoughts that you would be better off or hurting yourself in some way Answer Date of Assessment Author Not at all 04/01/2025 11:51 AM Cuate Landon MA * Patient Health Questionnaire-9 Score Answer Date of Assessment Author 1 04/01/2025 11:51 AM Cuate Landon MA * How difficult have these problems made it for you to do your work, take care of things at home, or get along with other people? Answer Date of Assessment Author Somewhat difficult 04/01/2025 11:51 AM Cuate Dorado MA documented as of this encounter Plan of Treatment Scheduled Orders Name Type Priority Associated Diagnoses Orde r Schedule Albumin, Random Urine W/Creatinine Lab Routine Type 2 diabetes mellitus without complication, without long-term current use of insulin ([facility]) Expected: 04/01/2025 (Approximate), Expires: 04/01/2026 documented as of this encounter Procedures Procedure Name Priority Date/Time Associated Diagnosis Comments POCT GLYCATED HEMOGLOBIN, TOTAL Routine 04/01/2025 10:58 AM EDT Type 2 diabetes mellitus without complication, without long-term current use of insulin ([facility]) POCT GLUCOSE Routine 04/01/2025 10:58 AM EDT Type 2 diabetes mellitus without complication, without long-term current use of insulin ([facility]) documented in this encounter Results * (ABNORMAL) POCT HGB A1C (04/01/2025 10:58 AM EDT) Hemoglobin A1C 6.2(A) 4.0 - 6.0 % QC Media Lot # [id number] Lot# Expiration Date Blood 04/01/2025 10:5 8 AM EDT us [...] complication, without long-term current use of insulin ([facility])- Primary Seasonal allergic rhinitis, unspecified trigger Encounter for immunization documented in this encounter Additional Health Concerns Assessment Noted Time PHQ-9 Depression Total Score: 1 04/01/20 25 11:51 AM EDT documented as of this encounter Care Teams Freezer Machine Operator Relationship Specialty Start Date End Date Name, MD Abimael [address] [place] [address] PCP - General Family Medicine 09/24/19 documented as of this encounter
--- OUTSIDE RECORDS SUMMARY | 2025-04-01 12:18 | XMS_ITS | Encounter Summary ---
Author Organization [employer] Address [address] [facility] [address] [place] [address] Care Team Providers Care Order Analyst Name Role Phone Name, Abimael ARANDA Primary Care Provider [phone] Reason for Visit * Reason Onset Date Comments Chart Prep 03/31/2025 Encounter Details Date Type Department Care Team ([facility] st Contact Info) Description 03/31/2025 Telephone [facility] [address] [place], [place] [id number] Lorena Rebollar MA Chart Prep Social History Tobacco Use Types Packs/Day Years [...] encounter Miscellaneous Notes * Telephone Encounter - Lorena Rebollar MA - 03/31/2025 11:29 AM EDT Chart Prep Labs: done Images: not applicable Referrals: not applicable Vaccines due: Covid, Flu, Tdap, RSV, and Zoster Screenings: mammogram and Urine protein, HIV Overdue care gaps: A1c, Glucose, SBIRT, SDOH, PHQ-9, Disability screen, and Tobacco documented in this encounter Plan of Treatment Not on file documented as of this encounter Visit Diagnoses Not on filedocumented in this encounter Additional Health Concerns Assessment Noted Time PHQ-9 Depression Total Score: 0 03/05/20 24 9:36 AM EDT documented as of this encounter Care Teams Order Analyst Relationship Specialty Start Date End Date Name, MD Abimael [address] [place] [address] PCP - General Family Medicine 09/24/19 documented as of this encounter
[2025-04-01 13:56] LABS: Microalbum/Creatinine Ratio Ur 30.5 ug/mg cr (<30)
== END 2025-04-01 11:45 | disposition home or self-care (01) ==
LOC: HO.HHCL 11:44
PROVIDERS: Visit Provider Internal Medicine Geriatric Medicine
DX: E11.9 Type 2 diabetes mellitus without complications (principal)
CPT/HCPCS: 82043; 82570